=== PATIENT | female | born 1955 | race Caucasian/White ===

== ENCOUNTER 2022-06-27 10:01 | Inpatient (IN) | payer MEDICARE, SELFPAY ==
[2022-06-27] VITALS (11 sets, daily range): BP systolic 145–177; BP diastolic 81–129; PULSE 88–106; RESP 18; TEMP 36.4–36.8; O2SAT 97–100; BMI 35.4
--- NOTE | ~2022-06-27 | CT_ITS ---
EXAMINATION: CT abdomen pelvis wo con DATE: 06/27/2022 12:07 INDICATION: Abdominal pain with vomiting TECHNIQUE: Computed tomography (CT) of the abdomen and pelvis was performed without intravenous contr ast. Automated exposure control and iterative reconstruction technique were employed. The dose-length product was 882.29 mGy-cm. COMPARISON: None FINDINGS: Lung bases are clear. Heart size is normal. No pericardial or pleural effusion. Small sliding-type hi atal hernia. Liver, pancreas, spleen, bilateral adrenal glands and kidneys are normal. Subtle heterog eneous density to the lumen of the otherwise normal appearing gallbladder suspicious for cholelithias is. There is mild colonic diverticulosis with a sigmoid and descending colon predominance. There is n o adjacent inflammatory change to suggest diverticulitis. Small bowel and appendix are normal. Bladd er is normal. The uterus is not identified and has likely been surgically resected. No free intraperi toneal gas or fluid. No pathologically enlarged abdominal or pelvic lymphadenopathy. There are multip le lytic bone lesions in the spine and pelvis. This most notable at T12. There is erosion of a portio n of the inferior endplate and with there is an associated potential pathologic compression fracture with approximately 20% anterior vertebral body height loss. IMPRESSION: 1. Multiple lytic bone lesions in the spine and pelvis suspicious for multiple myeloma with different ial including other metastatic disease. 2. Subtle heterogeneous density in the gallbladder lumen suspicious for cholelithiasis. 3. Diverticulosis. 4. Small sliding-type hiatal hernia. Reviewed, dictated and finalized at location A. REFINISHER IMPRESSION: 1. Multiple lytic bone lesions in the spine and pelvis suspicious for multiple myeloma with differential including other metastatic disease. 2. Subtle heterogeneous density in the gallbladder lumen suspicious for choleli thiasis. 3. Diverticulosis. 4. Small sliding-type hiatal hernia.
--- NOTE | ~2022-06-27 | BM_ITS ---
EXAMINATION: CCL bone marrow asp w bx diag DATE: 07/01/2022 10:35 INDICATION: Multiple myeloma. TECHNIQUE: A time-out was performed to verify the patient's name, date of , and procedure to b e performed. The procedure including the risks, benefits, and alternatives was discussed with the pat ient. Risks discussed included bleeding and infection. The patient understood the risks and agreed to proceed. The skin overlying the left ilium was prepped and draped in usual sterile fashion. Anesth etic was administered with 1% lidocaine subcutaneously. Moderate sedation was achieved with 1 mg Vers ed IV and 50 mg fentanyl IV. An 11 gauge needle was inserted into the ilium with fluoroscopic guidan ce. Bone marrow was aspirated. An 8 gauge needle was then inserted into the ilium with fluoroscopic g uidance. A core bone marrow biopsy was obtained. There were no immediate complications. Fluoroscopy e xposure time was 0.0 minutes. The total number of images was 9. FINDINGS: Real-time fluoroscopy demonstrates a marker overlying the left posterior superior iliac spi ne. IMPRESSION: 1. Fluoro-guided bone marrow aspiration. 2. Fluoro-guided bone marrow core biopsy. Reviewed, dictated and finalized at location A. R MAKING MACHINE OPERATOR
--- NOTE | ~2022-06-27 | XR_ITS ---
EXAMINATION: XR bone survey comp/metastic DATE: 06/28/2022 13:15 INDICATION: Lytic lesions of bone. TECHNIQUE: 29 views of a skeletal survey were obtained. COMPARISON: CT abdomen and pelvis 06/27/2022 FINDINGS: The chest demonstrates clear lungs without pneumonia, pleural effusion, or pneumothorax. Th e heart size is normal. There is a healing fracture of distal left clavicle. There is moderate cervic al spondylosis. There are greater than 40 lytic lesions in the skull. There are 2 lytic lesions in th e right humeral diaphysis. There are lytic lesions in the inferior pubic rami bilaterally. There are lytic lesions in T11-L2 vertebral bodies. There are old surgical changes in right fibula. IMPRESSION: 1. Lytic lesions of bone, consistent with multiple myeloma versus metastatic disease. Reviewed, dictated and finalized at location A. THERMAL CUTTER IMPRESSION: 1. Lytic lesions of bone, consistent with multiple myeloma versus metastatic di nabil.
--- NOTE | ~2022-06-27 | US_ITS ---
EXAMINATION: US renal BI DATE: 06/27/2022 13:00 INDICATION: Acute renal injury TECHNIQUE: Multiple ultrasound grayscale images of the kidneys were obtained. COMPARISON: CT dated 06/27/2022 FINDINGS: The right kidney measures 10.9 x 6.0 x 6.6 cm. The left kidney measures 10.7 x 4.6 x 4.6 cm. The kidn eys demonstrate normal echogenicity. There is no hydronephrosis in either kidney. No renal stones stan ntified. The bladder is normal. Incidentally noted shadowing gallstones in the otherwise normal appea ring nondilated gallbladder. Sonographic Vega sign was reported as negative by the transition coach. IMPRESSION: 1. Normal kidneys without hydronephrosis. 2. Cholelithiasis. Reviewed, dictated and finalized at location A. S AND BLOW MACHINE TENDER
--- NOTE | 2022-06-27 10:33 | ED.NAVMDI ---
HPI - Nausea/Vomiting/Diarrhea General Chief complaint: Nausea/Vomiting/Diarrhea Stated complaint: N/V Time Seen by Provider: 06/27/22 10:28 Source: patient and RN notes reviewed Mode of arrival: ambulatory Limitations: no limitations History of Present Illness HPI Narrative: 67 years old white female brought to the emergency room by her complaining of vomiting for the last 7 days, once in the morning and once at night. With dry heaves retching and nausea. She denies abdominal pain. Patient reports that her symptoms is secondary to nerve. Her had a recent diagnosis of cancer and that is extremely upsetting to her. Also complaining of poor appetite does not eat well or drink well during the daytime. Related Data Allergies Allergy/AdvReac Type Severity Reaction Status Date / Time No Known Allergies Allergy Verified 06/27/22 12:32 Review of Systems Review of Systems: All systems reviewed & are unremarkable except as noted in HPI and below Exam Narrative: General appearance: Well-developed, well-nourished, depressed Skin: Normal color Head: Normocephalic, nontraumatic Eyes: Clear conjunctiva ENT: Oropharynx normal, ears normal, nose normal Neck: Supple, nontender Chest and respiratory: Airway patent, no respiratory distress, no accessory muscle use Heart: Regular rate/rhythm Abdomen: Soft, nontender, no organomegaly, quiet bowel sounds Vascular: Normal peripheral pulses, normal capillary refill. Musculoskeletal: Normal range of motion, nontender back Neurologic: Alert and oriented ?3, DISPATCHER REFINERY is normal as tested, no gross motor deficit Course Consultations Consultation #1: Dr. Marti Date: 06/27/22 Time: 13:36 Vital Signs Vital signs: Vital Signs Temperature 36.4 C 06/27/22 10:24 Pulse Rate 91 06/27/22 10:24 Respiratory Rate 18 06/27/22 10:24 Blood Pressure 158/106 H 06/27/22 10:24 Pulse Oximetry 100 06/27/22 10:24 Oxygen Delivery Room Air 06/27/22 10:24 Temperature 36.4 C 06/27/22 10:24 Pulse Rate 91 06/27/22 10:24 Respiratory Rate 18 06/27/22 10:24 Blood Pressure 158/106 H 06/27/22 10:24 Pulse Oximetry 100 06/27/22 10:24 Oxygen Delivery Room Air 06/27/22 10:24 MDM - Nausea/Vomiting/Diarrhea Differential Diagnosis Differential diagnosis: Likely other (Gastritis, GERD, intra-abdominal malignancy, depression and distressed like symptoms) Lab Data Result diagrams: 06/27/22 10:42 06/27/22 10:42 Labs: Lab Results 06/27/22 06/27/22 06/27/22 Range/Units 10:42 10:42 13:13 WBC 8.0 (4.5-10.0) K/mm3 RBC 3.07 L (4.2-5.4) M/mm3 Hgb 8.9 L (12.0-15.0) g/dL Hct 26.6 L (37.0-47.0) % MCV 86.6 (80-100) fl MCH 29.0 (26-34) pg MCHC 33.5 (32-36) g/dl RDW 12.7 (11.5-14.5) % Plt Count 231 (150-375) k/mm3 MPV 9.1 (7.4-10.4) fl Immature Gran % (Auto) 0.6 H (0-0.5) % Neut % (Auto) 78.9 H (45.5-73.1) % Lymph % (Auto) 11.9 L (18.3-44.2) % Wells % (Auto) 6.8 (2.6-8.5) % Eos % (Auto) 0.9 (0-4.4) % Baso % (Auto) 0.9 (0.2-1.2) % Lymph # (Auto) 0.95 (0.9-3.2) K/mm3 Wells # (Auto) 0.5 (0.1-0.6) K/mm3 Eos # (Auto) 0.1 (0-0.3) K/mm3 Baso # (Auto) 0.1 (0.0-0.1) K/mm3 Abs Immat Gran (auto) 0.05 H (0.00-0.031) K/mm3 Absolute Neuts (auto) 6.3 (1.3-6.7) K/mm3 Absolute Nucleated RBC 0.0 (0.0-0.012) K/mm3 Nucleated RBC % 0.0 (0.0-0.2) % Sodium 138 (137-145) mmol/L Potassium 3.8 (3.4-5.0) mmol/L Chloride 101 (98-107) mmol/L Carbon Dioxide 20 L (22-30) mmol/L Anion Gap 17 H (8-16) mmol/L BUN 82 H (7-17) mg/dL Creatinine 10.90
[2022-06-27 10:50] LABS: Basophils Absolute Auto 0.1 K/mm3 (0.0-0.1); Basophils Percent Auto 0.9 % (0.2-1.2); Eosinophils Absolute Auto 0.1 K/mm3 (0-0.3); Eosinophils Percent Auto 0.9 % (0-4.4); Hematocrit 26.6 % (37.0-47.0); Hemoglobin 8.9 g/dL (12.0-15.0); Immature Granulocyte Absolute 0.05 K/mm3 (0.00-0.031); Immature Granulocyte Percent A 0.6 % (0-0.5); Lymphocytes Absolute Auto 0.95 K/mm3 (0.9-3.2); Lymphocytes Percent Auto 11.9 % (18.3-44.2); Mean Corpuscular HGB Conc 33.5 g/dl (32-36); Mean Corpuscular Volume 86.6 fl (80-100); Mean Platelet Volume 9.1 fl (7.4-10.4); Monocytes Absolute Auto 0.5 K/mm3 (0.1-0.6); Monocytes Percent Auto 6.8 % (2.6-8.5); Neutrophils Absolute Auto 6.3 K/mm3 (1.3-6.7); Neutrophils Percent Auto 78.9 % (45.5-73.1); Platelet Count Result 231 k/mm3 (150-375); Red Blood Count 3.07 M/mm3 (4.2-5.4); Red Cell Distribution Width 12.7 % (11.5-14.5)
[2022-06-27 11:25] LABS: Alanine Aminotransferase 12 U/L (6-35); Albumin Level 4.5 g/dL (3.5-5.1); Alkaline Phosphatase 79 U/L (38-126); Anion Gap 17 mmol/L (8-16); Aspartate Amino Transferase 22 U/L (14-36); Bilirubin,Total 0.8 mg/dL (0.2-1.3); Blood Urea Nitrogen 82 mg/dL (7-17); Carbon Dioxide 20 mmol/L (22-30); Chloride 101 mmol/L (98-107); Estimated Glomerular Filt Rate 4; Glucose 118 mg/dL (65-110); Lipase 220 U/L (23-300); Potassium 3.8 mmol/L (3.4-5.0); Sodium 138 mmol/L (137-145)
[2022-06-27] MEDS: Please add drug allergy info to patient profile. 1 EACH XX (12:34)
[2022-06-27] MEDS: SODIUM CHLORIDE 0.9% IV 2,000 ML 999 ML IV CONT (12:34)
[2022-06-27] MEDS: ONDANSETRON INJ 4 MG/2 ML VIAL IV PUSH (12:34)
[2022-06-27] MEDS: LORazepam INJ (*CRX) 2 MG/ML VIAL 1 MG IV PUSH (12:34)
--- NOTE | 2022-06-27 13:22 | PM.CNNEP ---
Assessment and Plan Assessment and plan (1) LALO (acute kidney injury): Code(s): N17.9 - Acute kidney failure, unspecified Status: Acute Assessment and Plan: concern is this may be secondary to multiple myeloma imaging with lytic bone lesions would support this however, do not want to discount some other pathology check urine electrolytes check urine eosinophils assess for proteinuria check serologies imaging (CT scan and renal ultrasound) without any acute pathology trial of IVFs remains at risk for needing MEDICAL SOCIAL WORKER/dialysis, however: no critical electrolyte abnormalities no evidence of volume overload no severe metabolic acidosis there is a concern of possible uremia, though follow repeat labs and UOP (2) Nausea & vomiting: Code(s): R11.2 - Nausea with vomiting, unspecified Status: Acute Assessment and Plan: presumably due to LALO/ARF +/- uremia trial of IVFs antiemetics supportive care (3) Lytic bone lesions on xray: Code(s): M89.9 - Disorder of bone, unspecified Status: Acute Assessment and Plan: as noted my admission imaging concerning for possible multiple myeloma or metastiatic disease SPEP, UPEP, kappa/lamda ratio, serum/urine immunofixation pending skeletal survey ordered Hem/Onc consulted (4) Anemia: Code(s): D64.9 - Anemia, unspecified Status: Acute Assessment and Plan: likely related to LALO/ARF and possible underlying malignancy follow H/H may need ESAs Long extensive discussion (greater than 20 minutes) with the patient regarding her severe renal dysfunction as noted by her admission labs. I informed her there is a possibility that she may require renal replacement therapy/dialysis during this hospitalization if not in the future depending on the trend of her electrolytes and volume status as well as the fact that she may run into issues/problems with uremia and/or metabolic acidosis. I also discussed with her the possibility that she may need a renal biopsy for definitive diagnosis as to the etiology of her acute kidney injury as well. Will continue to follow History of Present Illness Reason for Consult Consult date: 06/27/22 Reason for consult: acute renal failure Chief Complaint Chief complaint: Vomiting, LALO History of Present Illness Narrative: The patient is a 67-year-old female with a past medical history as outlined below who presented to [facility] Emergency room with complaints of nausea/vomiting. The patient states that the symptoms have been going on for the last 7 days and have progressively gotten worse. Associated symptoms included dry heaves which made her think that the symptoms in general were more related to anxiety/nerves as she has been dealing with the stress of her undergoing cancer treatment and this has been somewhat upsetting to her. Because of the nausea and vomiting, she has had a poor appetite and poor oral intake as well. Because of the persistence of the symptoms, she presented to the emergency room for further assessment Workup and evaluation emergency room demonstrated the patient to be hemodynamically stable but routine blood test demonstrated anemia with a hemoglobin/hematocrit of 8.9/26.6 and a chemistry that demonstrated significant renal dysfunction with a BUN of 82 and a creatinine of 10.9 with no critical electrolyte abnormalities. given her renal dysfunction, a renal ultrasound was done which did not demonstrate any acute pathology or obstruction and subsequently a CT scan of the abdomen pelvis was done which showed multiple lytic bone lesions in the spine and pelvis suspicious for multiple myeloma versus some other metastatic disease. Given these laboratory findings and imaging studies, she was started on IV fluids and subsequently admitted to the hospital for further evaluation and therapy. Renal consultation was requested due to he
[2022-06-27 13:34] LABS: Appearance Urine Clear (Clear); Bilirubin Urine Negative (Negative); Blood Urine 1+ (Negative); Color Urine Yellow (Yellow); Glucose Urine UA Negative (Negative); Ketones Urine Negative (Negative); Leukocyte Esterase Ur 1+ LEU/UL (Negative); Nitrate Urine Negative (Negative); Protein Urine 2+ mg/dL (Negative); Urobilinogen Urine 0.2 mg/dL (<2.0)
--- NOTE | 2022-06-27 13:35 | PM.IMHP ---
H&P: HPI History of Present Illness Date/Time: 06/27/22 13:35 Chief Complaint: Nausea vomiting and diarrhea. Narrative: This is a 67-year-old female patient who came to the emergency room with complaints of vomiting for the last 7 days. The patient vomited once this morning. She has also been having dry heaves. She denies any abdominal pain. The patient thought that she was just having the symptoms due to her nerves. Her is undergoing cancer treatment and has been upsetting to her. The patient has been complaining of poor appetite with poor oral intake. The patient is otherwise healthy and does not take any medications. Her H&H is 8.9 and 26.6. Her BUN is 82 creatinine 10.9. Calcium is 10.0. Her anion gap is 17. CT of the abdomen and pelvis was read as the following. Multiple lytic bone lesions in the spine and pelvis suspicious for multiple myeloma with differential including other metastatic disease. 2. Subtle heterogeneous density in the gallbladder lumen suspicious for cholelithiasis. 3. Diverticulosis. 4. Small sliding-type hiatal hernia. Renal ultrasound was read as normal kidneys without hydronephrosis. Cholelithiasis. Nephrology and Oncology have both been consulted. The patient was given IV fluids, Zofran and Ativan in the emergency room. All of these findings were discussed with the patient the concern for multiple myeloma. I explained to her that she may possibly have a bone marrow biopsy and will be referred to the oncologist. The patient is being admitted to inpatient services on the date of service of 06/27/2022. Review of Systems Review of Systems: See HPI All systems reviewed & are unremarkable except as noted in HPI and below Constitutional: Constitutional: Reports as per HPI and Reports no additional constitutional complaints Eyes: Eyes: Reports as per HPI and Reports no additional eye complaints ENT: Reports system reviewed and no additional complaints, except as documented and Reports Normal hearing present Cardiovascular: Cardiovascular: Reports no additional cardiovascular complaints Respiratory: Respiratory: Reports no additional respiratory complaints and Reports no additional respiratory complaints Gastrointestinal: Gastrointestinal: Reports as per HPI and Reports no additional gastrointestinal complaints Musculoskeletal: Musculoskeletal: Reports no additional musculoskeletal complaints Integumentary/Breasts: Skin/Breast: Reports system reviewed and no additional complaints, except as docu and Reports as per HPI Neurologic: Reports system reviewed and no additional complaints, except as documented, Reports as per HPI and Reports Normal hearing present Psychiatric: Psychiatric: Reports no additional psychiatric complaints and Reports as per HPI Endocrine: Endocrine: Reports no additional endocrine complaints Hematologic/Lymphatic: Hematologic/Lymphatic: Reports no additional hematologic/lymphatic complaints Allergic/Immunologic: Allergic/Immunologic: Reports no additional allergic/immunologic complaints [facility] Past Medical History Medical History (Updated 06/27/22 @ 17:00 by Yolanda Sandhu NP) Anxiety Surgical History Surgical History (Updated 06/27/22 @ 13:47 by Yolanda Sandhu NP) H/O foot surgery right foot H/O: hysterectomy History of removal of pigmented skin lesion Family History Family History (Updated 06/27/22 @ 13:45 by Yolanda Sandhu NP) Mother Diabetes mellitus Hypertension History of kidney cancer Father Lung cancer Anemia Sibling Bladder cancer Sibling Thyroid cancer Social History Social History (Updated 06/27/22 @ 16:57 by Yolanda Sandhu NP) Social History: The patient lives with her who recently started undergoing chemotherapy for cancer. They have 4 children. She is retired from [employer]. She is a lifelong nonsmoker. She does occasionally drink alcohol. She does not use any marijuana or illicit drugs. Power att
[2022-06-27 13:46] LABS: Bacteria Urine Trace /hpf; Mucus Urine Heavy /lpf; RBC Urine 0-2 /hpf (0-2); Squamous Epithelial Cell Urine Rare /hpf (Few)
[2022-06-27] MEDS: SODIUM CHLORIDE 0.9% IV 1,000 ML 999 ML IV CONT (13:52)
[2022-06-27 13:54] LABS: Add Urine Microscopic? YES
--- NOTE | 2022-06-27 15:08 | PC.NURSE ---
This patient, Deandra Winkler, was admitted to Medical Room 343-01. Patient/family oriented to hospital policies and general routines including ID bracelet, bed and alarms, visiting hours, pain management, procedures, bathroom and other care routines, personal items, smoking policy, room service/diet, and visiting hours. Information on how to activate the Rapid Response Team has been discussed. Patient/Family are encouraged to report perceived risks to care and to ask questions if they do not understand what they are told or what they should do.
[2022-06-27] MEDS: SODIUM CHLORIDE 0.9% IV 1,000 ML 250 ML IV CONT (15:28)
[2022-06-27 17:51] LABS: Creatinine Urine 47.5 mg/dL; Total Protein Urine Random 133 mg/dL; Urea Random Urine 230 MG/DL
[2022-06-27 17:55] LABS: Eosinophil Urine Rare % (None Seen); Sodium Urine Random 76 meq/L
[2022-06-27] MEDS: SODIUM CHLORIDE 0.9% IV 1,000 ML 100 ML IV CONT (20:18)
[2022-06-28] VITALS (9 sets, daily range): BP systolic 146–180; BP diastolic 78–98; PULSE 76–88; RESP 16–18; TEMP 36.8–36.9; O2SAT 96–100
[2022-06-28] MEDS: ONDANSETRON INJ 4 MG/2 ML VIAL IV PUSH (01:19)
[2022-06-28 03:19] LABS: Phosphorus 5.9 mg/dL (2.5-4.5)
[2022-06-28 03:27] LABS: Creatine Kinase 31 U/L (30-135)
[2022-06-28] MEDS: SODIUM CHLORIDE 0.9% IV 1,000 ML 100 ML IV CONT (05:10)
[2022-06-28 05:22] LABS: Basophils Absolute Auto 0.1 K/mm3 (0.0-0.1); Basophils Percent Auto 0.8 % (0.2-1.2); Eosinophils Absolute Auto 0.1 K/mm3 (0-0.3); Eosinophils Percent Auto 1.6 % (0-4.4); Immature Granulocyte Absolute 0.04 K/mm3 (0.00-0.031); Immature Granulocyte Percent A 0.6 % (0-0.5); Lymphocytes Absolute Auto 1.31 K/mm3 (0.9-3.2); Lymphocytes Percent Auto 20.4 % (18.3-44.2); Mean Corpuscular HGB Conc 33.3 g/dl (32-36); Mean Corpuscular Volume 87.1 fl (80-100); Mean Platelet Volume 8.8 fl (7.4-10.4); Monocytes Absolute Auto 0.5 K/mm3 (0.1-0.6); Monocytes Percent Auto 7.8 % (2.6-8.5); Neutrophils Absolute Auto 4.4 K/mm3 (1.3-6.7); Neutrophils Percent Auto 68.8 % (45.5-73.1); Platelet Count Result 171 k/mm3 (150-375); Red Blood Count 2.41 M/mm3 (4.2-5.4); Red Cell Distribution Width 12.6 % (11.5-14.5); White Blood Count 6.4 K/mm3 (4.5-10.0)
[2022-06-28 05:38] LABS: Complement C3 192 mg/dL (88-165)
[2022-06-28 05:48] LABS: Alanine Aminotransferase 10 U/L (6-35); Albumin Level 3.4 g/dL (3.5-5.1); Alkaline Phosphatase 52 U/L (38-126); Anion Gap 12 mmol/L (8-16); Aspartate Amino Transferase 12 U/L (14-36); Bilirubin,Total 0.5 mg/dL (0.2-1.3); Blood Urea Nitrogen 64 mg/dL (7-17); Calcium 8.6 mg/dL (8.4-10.2); Carbon Dioxide 17 mmol/L (22-30); Chloride 108 mmol/L (98-107); Estimated CRCL calculation 5 ml/min; Estimated Glomerular Filt Rate 4; Glucose 104 mg/dL (65-110); Magnesium 1.7 mg/dL (1.6-2.3); Potassium 3.8 mmol/L (3.4-5.0); Sodium 137 mmol/L (137-145)
[2022-06-28 06:25] LABS: Hepatitis B Surface Antigen Negative (Negative)
[2022-06-28 06:31] LABS: HAV RESULT Negative (Negative); Hepatitis B Core IgM Result Negative (Negative)
[2022-06-28 06:42] LABS: Hepatitis B Surface Anti Res Negative; Hepatitis C Virus Antibody Negative (Negative)
[2022-06-28] MEDS: SODIUM CHLORIDE 0.9% IV 250 ML 30 ML IV CONT (08:41)
--- NOTE | 2022-06-28 10:51 | P.PNNP_ITS ---
Progress Note: A&P Assessment and Plan (1) LALO (acute kidney injury): Code(s): N17.9 - Acute kidney failure, unspecified Status: Acute Assessment and Plan: * concern is this may be secondary to multiple myeloma * imaging with lytic bone lesions would support this * however, do not want to discount some other pathology * evaluation to date: * imaging (CT scan and renal ultrasound) without any acute pathology * urine electrolytes are non-prerenal * urine eosinophils present ( rare ) * 2800mg of proteinuria * serologies pending * trial of IVFs ongoing * remains at risk for needing COIL MACHINE SUPERVISOR/dialysis, however: * no critical electrolyte abnormalities * no evidence of volume overload * no severe metabolic acidosis * consider renal biopsy for definitive diagnosis of LALO/ARF * follow repeat labs and UOP (2) Nausea & vomiting: Code(s): R11.2 - Nausea with vomiting, unspecified Status: Acute Assessment and Plan: * presumably due to LALO/ARF +/- uremia * trial of IVFs * antiemetics * supportive care (3) Lytic bone lesions on xray: Code(s): M89.9 - Disorder of bone, unspecified Status: Acute Assessment and Plan: * as noted by admission imaging * concerning for possible multiple myeloma or metastatic disease * SPEP, UPEP, kappa/lamda ratio, serum/urine immunofixation pending * skeletal survey ordered * Hem/Onc consulted (4) Anemia: Code(s): D64.9 - Anemia, unspecified Status: Acute Assessment and Plan: * likely related to LALO/ARF and possible underlying malignancy * follow H/H * may need ESAs * check iron studies Will continue to follow. Subjective Date/time seen: 06/28/22 10:51 Renal function remains unchanged despite IVF therapy (although BUN has decreased to some degree); blood pressure has been running a bit high (despite no history of hypertension); nausea/vomiting seems to be doing better; good urine output noted. Exam Narrative: General: WD/WN female in NAD Heart: normal S1 and S2; no rub Lungs: clear to auscultation Abdomen: soft, nontender, nondistended, positive bowel sounds Extremities: no cyanosis or clubbing; no edema Skin: warm and dry Objective Data Vital Signs Vital Signs: Vital Signs Temp Pulse Resp BP Pulse Ox O2 Del Method 06/28/22 10:02 36.8 C 77 16 148/91 H 100 06/28/22 09:02 36.9 C 78 16 163/86 H 100 06/28/22 08:40 Room Air 06/28/22 08:40 36.9 C 76 16 147/87 H 99 06/28/22 06:00 36.9 C 88 18 146/78 H 96 06/27/22 22:00 36.8 C 88 18 153/87 H 97 06/27/22 20:00 Room Air 06/27/22 15:30 Room Air 06/27/22 14:31 36.7 C 106 H 18 163/86 H 100 06/27/22 13:01 157/86 H 06/27/22 12:46 154/81 H 06/27/22 12:09 145/92 H 06/27/22 11:46 154/88 H 06/27/22 11:31 177/129 H 06/27/22 11:01 158/103 H Intake/Output Intake/Output: Intake & Output 06/25/22 06/26/22 06/27/22 06/28/22 23:59 23:59 23:59 23:59 Intake Total 4560 1540 Output Total 300 1800 Balance 4260 -260 Meds/Results Medications: Active Medications
--- NOTE | 2022-06-28 10:51 | PM.PNNEP ---
Progress Note: A&P Assessment and Plan (1) LALO (acute kidney injury): Code(s): N17.9 - Acute kidney failure, unspecified Status: Acute Assessment and Plan: concern is this may be secondary to multiple myeloma imaging with lytic bone lesions would support this however, do not want to discount some other pathology evaluation to date: imaging (CT scan and renal ultrasound) without any acute pathology urine electrolytes are non-prerenal urine eosinophils present ( rare ) 2800mg of proteinuria serologies pending trial of IVFs ongoing remains at risk for needing MIDDLE SCHOOL GUIDANCE COUNSELOR/dialysis, however: no critical electrolyte abnormalities no evidence of volume overload no severe metabolic acidosis consider renal biopsy for definitive diagnosis of LALO/ARF follow repeat labs and UOP (2) Nausea & vomiting: Code(s): R11.2 - Nausea with vomiting, unspecified Status: Acute Assessment and Plan: presumably due to LALO/ARF +/- uremia trial of IVFs antiemetics supportive care (3) Lytic bone lesions on xray: Code(s): M89.9 - Disorder of bone, unspecified Status: Acute Assessment and Plan: as noted by admission imaging concerning for possible multiple myeloma or metastatic disease SPEP, UPEP, kappa/lamda ratio, serum/urine immunofixation pending skeletal survey ordered Hem/Onc consulted (4) Anemia: Code(s): D64.9 - Anemia, unspecified Status: Acute Assessment and Plan: likely related to LALO/ARF and possible underlying malignancy follow H/H may need ESAs check iron studies Will continue to follow. Subjective Date/time seen: 06/28/22 10:51 Renal function remains unchanged despite IVF therapy (although BUN has decreased to some degree); blood pressure has been running a bit high (despite no history of hypertension); nausea/vomiting seems to be doing better; good urine output noted. Exam Narrative: General: WD/WN female in NAD Heart: normal S1 and S2; no rub Lungs: clear to auscultation Abdomen: soft, nontender, nondistended, positive bowel sounds Extremities: no cyanosis or clubbing; no edema Skin: warm and dry Objective Data Vital Signs Vital Signs: Vital Signs Temp Pulse Resp BP Pulse Ox O2 Del Method 06/28/22 10:02 36.8 C 77 16 148/91 H 100 06/28/22 09:02 36.9 C 78 16 163/86 H 100 06/28/22 08:40 Room Air 06/28/22 08:40 36.9 C 76 16 147/87 H 99 06/28/22 06:00 36.9 C 88 18 146/78 H 96 06/27/22 22:00 36.8 C 88 18 153/87 H 97 06/27/22 20:00 Room Air 06/27/22 15:30 Room Air 06/27/22 14:31 36.7 C 106 H 18 163/86 H 100 06/27/22 13:01 157/86 H 06/27/22 12:46 154/81 H 06/27/22 12:09 145/92 H 06/27/22 11:46 154/88 H 06/27/22 11:31 177/129 H 06/27/22 11:01 158/103 H Intake/Output Intake/Output: Intake & Output 06/25/22 06/26/22 06/27/22 06/28/22 23:59 23:59 23:59 23:59 Intake Total 4560 1540 Output Total 300 1800 Balance 4260 -260 Meds/Results Medications: Active Medications Generic Name Dose Route Start Last Admin Trade Name Freq PRN Reason Stop Dose Admin Acetaminophen 1,000 mg in 100 mls @ 400 mls/hr 06/27/22 12:11 06/28/22 01:35 Ofirmev 1,000 Mg Ivpb IVPB 06/28/22 12:10 Infused Q6H PRN Infusion Mild Pain (1-3) or Fever Sodium Chloride 1,000 mls @ 100 mls/hr 06/27/22 12:15 06/28/22 05:10 Normal Saline Iv IV CONT 100 mls/hr .Q10H RYAN Administration Sodium Chloride 250 mls @ 30 mls/hr 06/28/22 05:38 06/28/22 08:41 Normal Saline Iv IV CONT 06/28/22 13:57 30 mls/hr .Q8H20M STA Administration Lorazepam 0.5 mg 06/27/22 17:07 Lorazepam Inj (*Crx) 2 Mg/Ml Vial IV PUSH Q6H PRN Anxiety Ondansetron HCl 4 mg 06/27/22 12:11 06/28/22 01:19 Ondansetron Inj 4 Mg/2 Ml Vial IV PUSH 4 mg Q4H PRN Administration Nausea
--- NOTE | 2022-06-28 14:25 | PM.IMPN ---
Progress Note: A&P Assessment and Plan (1) Anemia: Code(s): D64.9 - Anemia, unspecified Status: Acute Assessment and Plan: -could be related to her renal failure. Multiple test suggested patient has multiple myeloma. She has the lytic lesions, anemia, normal limits of calcium, and renal failure. -oncology has been consulted. -. Patient's H&H is 8.9 and 26.6. MCV is within normal limits. No recent values to compare this with. Hemoglobin down to 7 and getting 1 unit of packed red blood cell transfusion today (2) LALO (acute kidney injury): Code(s): N17.9 - Acute kidney failure, unspecified Status: Acute Assessment and Plan: -continue with IV fluids. -nephrology has been consulted. -may be multiple myeloma. -renal ultrasound was read as following 1. Normal kidneys without hydronephrosis. 2. Cholelithiasis. -BUN 82 creatinine 10.90 estimated GFR is 4. (3) Bone metastases: Code(s): C79.51 - Secondary malignant neoplasm of bone Status: Acute Assessment and Plan: -the patient has lytic lesions that resemble multiple myeloma. (4) Anxiety: Code(s): F41.9 - Anxiety disorder, unspecified Status: Acute Assessment and Plan: P.maricarmen Bermeo. Subjective Date/time seen: 06/28/22 14:25 Interval history: This is a 67-year-old female patient who came to the emergency room with complaints of vomiting for the last 7 days.? The patient vomited once this morning.? She has also been having dry heaves.? She denies any abdominal pain.? The patient thought that she was just having the symptoms due to her nerves.? Her is undergoing cancer treatment and has been upsetting to her.? The patient has been complaining of poor appetite with poor oral intake.? The patient is otherwise healthy and does not take any medications.? Her H&H is 8.9 and 26.6.? Her BUN is 82 creatinine 10.9.? Calcium is 10.0.? Her anion gap is 17.? CT of the abdomen and pelvis was read as the following. Multiple lytic bone lesions in the spine and pelvis suspicious for multiple myeloma with differential including other metastatic disease. 2. Subtle heterogeneous density in the gallbladder lumen suspicious for cholelithiasis. 3. Diverticulosis. 4. Small sliding-type hiatal hernia. Renal ultrasound was read as normal kidneys without hydronephrosis.? Cholelithiasis. Nephrology and Oncology have both been consulted. The patient was given IV fluids, Zofran and Ativan in the emergency room. All of these findings were discussed with the patient the concern for multiple myeloma.? I explained to her that she may possibly have a bone marrow biopsy and will be referred to the oncologist.? The patient is being admitted to inpatient services on the date of service of 06/27/2022. 06/28/2022: No overnight events. Feels okay. Denies any chest pain or shortness of breath. Review of Systems Review of Systems: All systems reviewed & are unremarkable except as noted in HPI and below Exam Narrative: General appearance: Well-developed, well-nourished, depressed Skin: Normal color Head: Normocephalic, nontraumatic Eyes: Clear conjunctiva ENT: Oropharynx normal, ears normal, nose normal Neck: Supple, nontender Chest and respiratory: Airway patent, no respiratory distress, no accessory muscle use Heart: Regular rate/rhythm Abdomen: Soft, nontender, no organomegaly, quiet bowel sounds Vascular: Normal peripheral pulses, normal capillary refill. Musculoskeletal: Normal range of motion, nontender back Neurologic: Alert and oriented ?3, OUTPATIENT PROGRAM COORDINATOR is normal as tested, no gross motor deficit Objective Data Vital Signs Vital Signs: Vital Signs - 24 hr 06/27/22 14:31 06/27/22 15:30 06/27/22 20:00 Temperature 98.1 F Pulse Rate 106 H Respiratory Rate 18 Blood Pressure 163/86 H Pulse Oximetry 100 Oxygen Delivery Room Air Room Air 06/27/22 22:00 06/28/22 06:00 06/28/22 08:40 Temperature 98.2 F 98.4 F 98.5 F
[2022-06-28] MEDS: SODIUM CHLORIDE 0.9% IV 1,000 ML 50 ML IV CONT (23:30)
[2022-06-29] MEDS: ONDANSETRON INJ 4 MG/2 ML VIAL IV PUSH ×2 (00:22→04:33)
[2022-06-29 04:26] VITALS: BP 163/92; PULSE 99; RESP 16; TEMP 37.1; O2SAT 97
[2022-06-29 05:37] LABS: Basophils Absolute Auto 0.1 K/mm3 (0.0-0.1); Basophils Percent Auto 0.9 % (0.2-1.2); Eosinophils Absolute Auto 0.1 K/mm3 (0-0.3); Eosinophils Percent Auto 1.7 % (0-4.4); Hematocrit 23.9 % (37.0-47.0); Immature Granulocyte Absolute 0.06 K/mm3 (0.00-0.031); Immature Granulocyte Percent A 0.9 % (0-0.5); Lymphocytes Absolute Auto 1.39 K/mm3 (0.9-3.2); Lymphocytes Percent Auto 20.1 % (18.3-44.2); Mean Corpuscular HGB Conc 33.5 g/dl (32-36); Mean Corpuscular Hemoglobin 28.8 pg (26-34); Mean Platelet Volume 8.6 fl (7.4-10.4); Monocytes Absolute Auto 0.6 K/mm3 (0.1-0.6); Neutrophils Absolute Auto 4.7 K/mm3 (1.3-6.7); Neutrophils Percent Auto 68.4 % (45.5-73.1); Platelet Count Result 161 k/mm3 (150-375); Red Blood Count 2.78 M/mm3 (4.2-5.4); Red Cell Distribution Width 12.8 % (11.5-14.5); White Blood Count 6.9 K/mm3 (4.5-10.0)
[2022-06-29 05:48] LABS: Alanine Aminotransferase 10 U/L (6-35); Albumin Level 3.5 g/dL (3.5-5.1); Alkaline Phosphatase 60 U/L (38-126); Anion Gap 10 mmol/L (8-16); Aspartate Amino Transferase 14 U/L (14-36); Bilirubin,Total 0.5 mg/dL (0.2-1.3); Blood Urea Nitrogen 60 mg/dL (7-17); Calcium 8.7 mg/dL (8.4-10.2); Carbon Dioxide 18 mmol/L (22-30); Chloride 111 mmol/L (98-107); Estimated CRCL calculation 5 ml/min; Estimated Glomerular Filt Rate 4; Glucose 99 mg/dL (65-110); Magnesium 1.5 mg/dL (1.6-2.3); Phosphorus 4.7 mg/dL (2.5-4.5); Potassium 3.7 mmol/L (3.4-5.0); Sodium 139 mmol/L (137-145)
[2022-06-29 05:58] LABS: Iron 48 ug/dL (37-170)
[2022-06-29 06:09] LABS: Percent Iron Saturation 23 % (20-50)
[2022-06-29 06:51] LABS: Folic Acid 5.1 ng/mL (2.76->20)
[2022-06-29 10:20] VITALS: O2SAT 98
--- NOTE | 2022-06-29 13:03 | P.PNNP_ITS ---
Progress Note: A&P Assessment and Plan (1) LALO (acute kidney injury): Code(s): N17.9 - Acute kidney failure, unspecified Status: Acute Assessment and Plan: * normal renal function as of May 2021 * concern is this may be secondary to multiple myeloma * imaging with lytic bone lesions would support this * however, do not want to discount some other pathology * evaluation to date: * imaging (CT scan and renal ultrasound) without any acute pathology * urine electrolytes are non-prerenal * urine eosinophils present ( rare ) * 2800mg of proteinuria * serologies pending * trial of IVFs ongoing * remains at risk for needing RE ETCHER/dialysis, however: * no critical electrolyte abnormalities * no evidence of volume overload * no severe metabolic acidosis * consider renal biopsy for definitive diagnosis of LALO/ARF * follow repeat labs and UOP (2) Nausea & vomiting: Code(s): R11.2 - Nausea with vomiting, unspecified Status: Acute Assessment and Plan: * presumably due to LALO/ARF +/- uremia * trial of IVFs * antiemetics * supportive care (3) Lytic bone lesions on xray: Code(s): M89.9 - Disorder of bone, unspecified Status: Acute Assessment and Plan: * as noted by admission imaging * concerning for possible multiple myeloma or metastatic disease * SPEP, UPEP, kappa/lamda ratio, serum/urine immunofixation pending * skeletal survey results noted * Hem/Onc consulted (4) Anemia: Code(s): D64.9 - Anemia, unspecified Status: Acute Assessment and Plan: * likely related to LALO/ARF and possible underlying malignancy * follow H/H * PRBC transfusion per protoco; * may need ESAs * anemia studies with adequate iron stores Long and extensive discussion (> 20 minutes) with patient and her /family at bedside regarding her LALO/ARF; despite her labs, she has stable electrolytes, no evidence of volume overload, and no uremia so no need for urgent dialysis at this time; serologies studies are pending but discussed the possibility of doing a renal biopsy for a definitive diagnosis of her LALO/ARF ( high index of suspicion for myeloma kidney); she will think about this but is waiting to discuss things with Hem/Onc first. Will continue to follow. Subjective Date/time seen: 06/29/22 13:03 No apparent distress voiced; renal function remains unchanged with current intervention; continues to make reasonable urine output and has no critical electrolytes; nausea/vomiting seems to be controlled with IV anti-emetics; tolerated PRBC transfusion yesterday; family at bedside and we discussed the situation. Exam Narrative: General: WD/WN female in NAD Heart: normal S1 and S2; no rub Lungs: clear to auscultation Abdomen: soft, nontender, nondistended, positive bowel sounds Extremities: no cyanosis or clubbing; no edema Skin: warm and intact Objective Data Vital Signs Vital Signs: Vital Signs Temp Pulse Resp BP Pulse Ox O2 Del Method 06/29/22 10:20 98 Room Air 06/29/22 08:00 Room Air 06/29/22 04:26 37.1 C 99 16 163/92 H 97 06/28/22 20:00 78 18 100 Room Air 06/28/22 20:28 36.9 C 78 18 161/89 H 100 Intake/Output Intake/Output: Intake & Output 06/26/22 06/27/22 06/28/22 06/29/22 23:59 2
--- NOTE | 2022-06-29 13:03 | PM.PNNEP ---
Progress Note: A&P Assessment and Plan (1) LALO (acute kidney injury): Code(s): N17.9 - Acute kidney failure, unspecified Status: Acute Assessment and Plan: normal renal function as of May 2021 concern is this may be secondary to multiple myeloma imaging with lytic bone lesions would support this however, do not want to discount some other pathology evaluation to date: imaging (CT scan and renal ultrasound) without any acute pathology urine electrolytes are non-prerenal urine eosinophils present ( rare ) 2800mg of proteinuria serologies pending trial of IVFs ongoing remains at risk for needing MUSICAL PERFORMER/dialysis, however: no critical electrolyte abnormalities no evidence of volume overload no severe metabolic acidosis consider renal biopsy for definitive diagnosis of LALO/ARF follow repeat labs and UOP (2) Nausea & vomiting: Code(s): R11.2 - Nausea with vomiting, unspecified Status: Acute Assessment and Plan: presumably due to LALO/ARF +/- uremia trial of IVFs antiemetics supportive care (3) Lytic bone lesions on xray: Code(s): M89.9 - Disorder of bone, unspecified Status: Acute Assessment and Plan: as noted by admission imaging concerning for possible multiple myeloma or metastatic disease SPEP, UPEP, kappa/lamda ratio, serum/urine immunofixation pending skeletal survey results noted Hem/Onc consulted (4) Anemia: Code(s): D64.9 - Anemia, unspecified Status: Acute Assessment and Plan: likely related to LALO/ARF and possible underlying malignancy follow H/H PRBC transfusion per protoco; may need ESAs anemia studies with adequate iron stores Long and extensive discussion (> 20 minutes) with patient and her /family at bedside regarding her LALO/ARF; despite her labs, she has stable electrolytes, no evidence of volume overload, and no uremia so no need for urgent dialysis at this time; serologies studies are pending but discussed the possibility of doing a renal biopsy for a definitive diagnosis of her LALO/ARF ( high index of suspicion for myeloma kidney); she will think about this but is waiting to discuss things with Hem/Onc first. Will continue to follow. Subjective Date/time seen: 06/29/22 13:03 No apparent distress voiced; renal function remains unchanged with current intervention; continues to make reasonable urine output and has no critical electrolytes; nausea/vomiting seems to be controlled with IV anti-emetics; tolerated PRBC transfusion yesterday; family at bedside and we discussed the situation. Exam Narrative: General: WD/WN female in NAD Heart: normal S1 and S2; no rub Lungs: clear to auscultation Abdomen: soft, nontender, nondistended, positive bowel sounds Extremities: no cyanosis or clubbing; no edema Skin: warm and intact Objective Data Vital Signs Vital Signs: Vital Signs Temp Pulse Resp BP Pulse Ox O2 Del Method 06/29/22 10:20 98 Room Air 06/29/22 08:00 Room Air 06/29/22 04:26 37.1 C 99 16 163/92 H 97 06/28/22 20:00 78 18 100 Room Air 06/28/22 20:28 36.9 C 78 18 161/89 H 100 Intake/Output Intake/Output: Intake & Output 06/26/22 06/27/22 06/28/22 06/29/22 23:59 23:59 23:59 23:59 Intake Total 4560 4720 1928 Output Total 300 2850 2750 Balance 4260 1870 -822 Meds/Results Medications: Active Medications Generic Name Dose Route Start Last Admin Trade Name Freq PRN Reason Stop Dose Admin Acetaminophen 650 mg 06/29/22 14:39 06/29/22 14:46 Acetaminophen 325 Mg Tablet PO 650 mg Q6H PRN Administration Mild Pain (1-3) or Fever Sodium Chloride 1,000 mls @ 50 mls/hr 06/27/22 12:15 06/28/22 23:30 Normal Saline Iv IV CONT 50 mls/hr .Q20H RYAN Administration Lorazepam 0.5 mg 06/27/22 17:07 Lorazepam Inj (*Crx) 2 Mg/Ml Vial IV PUSH Q6H PRN Anxiety Ondansetron H
[2022-06-29 13:22] VITALS: BMI 35.4
[2022-06-29 14:00] VITALS: BP 152/88; PULSE 79; RESP 18; TEMP 36.6; O2SAT 99
[2022-06-29] MEDS: ACETAMINOPHEN 325 MG TABLET 650 MG PO (14:46)
--- NOTE | 2022-06-29 18:05 | PM.IMPN ---
Progress Note: A&P Assessment and Plan (1) Anemia: Code(s): D64.9 - Anemia, unspecified Status: Acute Assessment and Plan: -could be related to her renal failure. Multiple test suggested patient has multiple myeloma. She has the lytic lesions, anemia, normal limits of calcium, and renal failure. -oncology has been consulted. -. Patient's H&H is 8.9 and 26.6. MCV is within normal limits. No recent values to compare this with. Hemoglobin down to 7 and getting 1 unit of packed red blood cell transfusion With appropriate rise. Continue to monitor H&H no active signs of bleeding (2) LALO (acute kidney injury): Code(s): N17.9 - Acute kidney failure, unspecified Status: Acute Assessment and Plan: -continue with IV fluids. -nephrology has been consulted. -may be multiple myeloma. -renal ultrasound was read as following 1. Normal kidneys without hydronephrosis. 2. Cholelithiasis. -BUN 82 creatinine 10.90 estimated GFR is 4. (3) Bone metastases: Code(s): C79.51 - Secondary malignant neoplasm of bone Status: Acute Assessment and Plan: -the patient has lytic lesions that resemble multiple myeloma versus metastatic disease. Discussed with Oncology she might need bone marrow biopsy. Will need to wait for electrophoresis test. (4) Anxiety: Code(s): F41.9 - Anxiety disorder, unspecified Status: Acute Assessment and Plan: Pablo Bermeo. Subjective Date/time seen: 06/29/22 18:05 Interval history: This is a 67-year-old female patient who came to the emergency room with complaints of vomiting for the last 7 days.? The patient vomited once this morning.? She has also been having dry heaves.? She denies any abdominal pain.? The patient thought that she was just having the symptoms due to her nerves.? Her is undergoing cancer treatment and has been upsetting to her.? The patient has been complaining of poor appetite with poor oral intake.? The patient is otherwise healthy and does not take any medications.? Her H&H is 8.9 and 26.6.? Her BUN is 82 creatinine 10.9.? Calcium is 10.0.? Her anion gap is 17.? CT of the abdomen and pelvis was read as the following. Multiple lytic bone lesions in the spine and pelvis suspicious for multiple myeloma with differential including other metastatic disease. 2. Subtle heterogeneous density in the gallbladder lumen suspicious for cholelithiasis. 3. Diverticulosis. 4. Small sliding-type hiatal hernia. Renal ultrasound was read as normal kidneys without hydronephrosis.? Cholelithiasis. Nephrology and Oncology have both been consulted. The patient was given IV fluids, Zofran and Ativan in the emergency room. All of these findings were discussed with the patient the concern for multiple myeloma.? I explained to her that she may possibly have a bone marrow biopsy and will be referred to the oncologist.? The patient is being admitted to inpatient services on the date of service of 06/27/2022. 06/28/2022: No overnight events. Feels okay. Denies any chest pain or shortness of breath. 06/29/2022: She had an episode of nausea and vomiting last night. She feels well today. Wonders if she could go home. Denies any chest pain shortness a breath or leg swelling. Review of Systems Review of Systems: All systems reviewed & are unremarkable except as noted in HPI and below Exam Narrative: General appearance: Well-developed, well-nourished, depressed Skin: Normal color Head: Normocephalic, nontraumatic Eyes: Clear conjunctiva ENT: Oropharynx normal, ears normal, nose normal Neck: Supple, nontender Chest and respiratory: Airway patent, no respiratory distress, no accessory muscle use Heart: Regular rate/rhythm Abdomen: Soft, nontender, no organomegaly, quiet bowel sounds Vascular: Normal peripheral pulses, normal capillary refill. Musculoskeletal: Normal range of motion, nontender back Neurologic: Alert and oriented ?3, MANAGER LATIN is normal a
--- NOTE | 2022-06-29 18:33 | PDONCCN ---
HPI - Date of Consult Date/Time: 06/29/22 18:33 Requesting Physician: Ezequiel Bernard MD Primary Care Provider: PHYSICIAN NOT ON STAFF - Consult Narrative Reason for consult: Likely multiple myeloma Narrative: Deandra Winkler is a 67 year old female who has been in good health visiting from [place] with her new was recently diagnosed with tongue cancer and completed course of radiation therapy and chemotherapy treatment. She came into the ER with complain of nausea vomiting for last 1 week duration. She denies any bone pain. She denies any neuropathy. She has lost over 10 lb weight which she contributes to the recent stress with her going through chemotherapy and radiation therapy treatment. Patient had CT scan of abdomen and pelvis done that showed multiple lytic bone lesions in the spine and the pelvis concerning for multiple myeloma or metastatic disease. Labs also showed significant anemia with hemoglobin of 7.0. Patient's serum creatinine was 10.9. BUN was also elevated. Calcium was 10.0. She denies any previous history of kidney disease. Review of Systems - Review of Systems All systems reviewed & are unremarkable except as noted in HPI and bel - Neurologic Reports system reviewed and no additional complaints, except as documented, Reports hearing normal [facility] Medical History: Medical History (Last Updated 06/27/22 @ 16:56 by Yolanda Sandhu NP) Anxiety Surgical History: Surgical History (Last Updated 06/27/22 @ 13:47 by Yolanda Sandhu NP) H/O foot surgery right foot H/O: hysterectomy History of removal of pigmented skin lesion Family History: Family History (Last Updated 06/27/22 @ 13:45 by Yolanda Sandhu NP) Mother Diabetes mellitus Hypertension History of kidney cancer Father Lung cancer Anemia Sibling Bladder cancer Sibling Thyroid cancer - Social History Social History: Social History (Last Updated 06/27/22 @ 16:57 by Yolanda Sandhu NP) Alcohol Use: Alcohol intake: former Drinks per week: 7 Substance Use: Substance use: never Substance use type: does not use Others: Spiritual care concerns: No Smoking Status: Smoking status: Never smoker Second hand tobacco smoke exposure: No Social Determinants of Health: Has the Lack of Transportation Kept You From Medical Appointments or From Getting Medications?: No Within the Past 12 Months, Were You Worried Whether Your Food Would Run Out Before You Got Money to Buy More?: Never True What is Your Housing Situation Today?: I Have Housing Are You Worried That in the Next 2 Months, You May Not Have Your Own Housing to Live In?: No Do You Have Trouble Paying Your Heating Or Electricity Bill?: No Do You Have Trouble Paying For Medicines?: No Are You Currently Unemployed and Looking for Work?: No Highest Level of Education Completed: High School Diploma/GED Do You Have Trouble With Childcare or the Care of a Family Member?: No Exam - Vital Signs Vital Signs - 24 hr 06/28/22 20:28 06/28/22 20:00 06/29/22 04:26 Temperature 36.9 C 37.1 C Pulse Rate 78 78 99 Respiratory Rate 18 18 16 Blood Pressure 161/89 H 163/92 H Pulse Oximetry 100 100 97 Oxygen Delivery Room Air 06/29/22 08:00 06/29/22 10:20 06/29/22 14:00 Temperature 36.6 C Pulse Rate 79 Respiratory Rate 18 Blood Pressure 152/88 H Pulse Oximetry 98 99 Oxygen Delivery Room Air Room Air - Exam HEENT: EOMI, PERRLA, mucous membranes moist and pink, sclera clear Neck: supple. No: JVD Lungs: clear to auscultation, normal air movement Heart: no murmurs, gallops, or rubs, regular rhythm, regular rate Abdomen: abdomen soft, non-distended, normal bowel sounds Extremities: normal pulses Integumentary: no abnormalities Neurological: normal speech Psychological: mental status NL, mood NL - Lab Results Laboratory Last Values WBC 6.9 K
[2022-06-29 19:23] LABS: Immunoglobulin A 228 mg/dL (70-400); Immunoglobulin G 431 mg/dL (700-1600); Immunoglobulin M 31 mg/dL (40-230)
[2022-06-29 19:46] VITALS: BP 154/92; PULSE 70; RESP 18; TEMP 36.8; O2SAT 99
[2022-06-29 20:00] VITALS: PULSE 70; RESP 18; O2SAT 99
[2022-06-29] MEDS: SODIUM CHLORIDE 0.9% IV 1,000 ML 50 ML IV CONT (20:29)
[2022-06-30] MEDS: ONDANSETRON INJ 4 MG/2 ML VIAL IV PUSH (00:51)
[2022-06-30 04:35] VITALS: BP 153/79; PULSE 90; RESP 16; TEMP 36.8; O2SAT 97
[2022-06-30 05:49] LABS: Alanine Aminotransferase 10 U/L (6-35); Albumin Level 3.5 g/dL (3.5-5.1); Alkaline Phosphatase 66 U/L (38-126); Anion Gap 11 mmol/L (8-16); Aspartate Amino Transferase 14 U/L (14-36); Bilirubin,Total 0.5 mg/dL (0.2-1.3); Blood Urea Nitrogen 60 mg/dL (7-17); Calcium 8.7 mg/dL (8.4-10.2); Carbon Dioxide 18 mmol/L (22-30); Chloride 110 mmol/L (98-107); Estimated CRCL calculation 5 ml/min; Estimated Glomerular Filt Rate 4; Glucose 102 mg/dL (65-110); Magnesium 1.5 mg/dL (1.6-2.3); Phosphorus 5.2 mg/dL (2.5-4.5); Potassium 3.9 mmol/L (3.4-5.0); Sodium 139 mmol/L (137-145)
[2022-06-30 05:50] LABS: Basophils Absolute Auto 0.1 K/mm3 (0.0-0.1); Basophils Percent Auto 0.9 % (0.2-1.2); Eosinophils Absolute Auto 0.1 K/mm3 (0-0.3); Hemoglobin 8.2 g/dL (12.0-15.0); Immature Granulocyte Absolute 0.06 K/mm3 (0.00-0.031); Immature Granulocyte Percent A 0.9 % (0-0.5); Lymphocytes Absolute Auto 1.25 K/mm3 (0.9-3.2); Lymphocytes Percent Auto 18.2 % (18.3-44.2); Mean Corpuscular HGB Conc 32.8 g/dl (32-36); Mean Corpuscular Hemoglobin 29.2 pg (26-34); Mean Platelet Volume 9.1 fl (7.4-10.4); Monocytes Absolute Auto 0.5 K/mm3 (0.1-0.6); Monocytes Percent Auto 7.4 % (2.6-8.5); Neutrophils Absolute Auto 4.8 K/mm3 (1.3-6.7); Neutrophils Percent Auto 70.6 % (45.5-73.1); Platelet Count Result 164 k/mm3 (150-375); Red Blood Count 2.81 M/mm3 (4.2-5.4); Red Cell Distribution Width 13.1 % (11.5-14.5); White Blood Count 6.9 K/mm3 (4.5-10.0)
[2022-06-30] MEDS: CYANOCOBALAMIN 1,000 MCG TABLET 1000 MCG PO (09:07)
--- NOTE | 2022-06-30 11:36 | P.PNNP_ITS ---
Progress Note: A&P Assessment and Plan (1) LALO (acute kidney injury): Code(s): N17.9 - Acute kidney failure, unspecified Status: Acute Assessment and Plan: * normal renal function as of May 2021 * concern is this may be secondary to multiple myeloma * imaging with lytic bone lesions would support this * however, do not want to discount some other pathology * evaluation to date: * imaging (CT scan and renal ultrasound) without any acute pathology * urine electrolytes are non-prerenal * urine eosinophils present ( rare ) * 2800mg of proteinuria * serologies pending * remains at risk for needing INSTRUMENT TECHNICIAN/dialysis, however: * no critical electrolyte abnormalities * no evidence of volume overload * no severe metabolic acidosis * consider renal biopsy for definitive diagnosis of LALO/ARF * follow repeat labs and UOP (2) Nausea & vomiting: Code(s): R11.2 - Nausea with vomiting, unspecified Status: Acute Assessment and Plan: * presumably due to LALO/ARF +/- uremia * IV antiemetics * supportive care (3) Lytic bone lesions on xray: Code(s): M89.9 - Disorder of bone, unspecified Status: Acute Assessment and Plan: * as noted by admission imaging * concerning for possible multiple myeloma or metastatic disease * SPEP, UPEP, kappa/lamda ratio, serum/urine immunofixation pending * skeletal survey results noted * Hem/Onc recommendations noted (4) Anemia: Code(s): D64.9 - Anemia, unspecified Status: Acute Assessment and Plan: * likely related to LALO/ARF and possible underlying malignancy * follow H/H * PRBC transfusion per protocol; * may need ESAs * anemia studies with adequate iron stores Will continue to follow. Subjective Date/time seen: 06/30/22 11:36 Overall, seems to be doing reasonably well; still have some on/off issues with nausea and dry heaves but does respond to IV antiemetics; saw Oncology yesterday; willing to move forward with bone marrow biopsy at this time. Exam Narrative: General: WD/WN female in NAD Heart: normal S1 and S2; no rub Lungs: clear to auscultation Abdomen: soft, nontender, nondistended, positive bowel sounds Extremities: no cyanosis or clubbing; no edema Skin: no nodules Objective Data Vital Signs Vital Signs: Vital Signs Temp Pulse Resp BP Pulse Ox O2 Del Method 11/22/22 09:30 Room Air 06/30/22 04:35 98.2 F 90 16 153/79 H 97 06/29/22 20:00 70 18 99 Room Air 06/29/22 19:46 98.3 F 70 18 154/92 H 99 06/29/22 14:00 97.8 F 79 18 152/88 H 99 Intake/Output Intake/Output: Intake & Output 06/27/22 06/28/22 06/29/22 06/30/22 23:59 23:59 23:59 23:59 Intake Total 4560 4720 3318 590 Output Total 300 2850 2750 1050 Balance 4260 1870 568 -460 Meds/Results Medications: Active Medications Generic Name Dose Route Start Last Admin Trade Name Freq PRN Reason Stop Dose Admin Acetaminophen 650 mg 06/29/22 14:39 06/29/22 14:46 Acetaminophen 325 Mg Tablet PO 650 mg Q6H PRN Administration Mild Pain (1-3) or Fever Cyanocobalamin 1,000 mcg 06/30/22 09:00 06/30/22 09:07 Cyanocoba
--- NOTE | 2022-06-30 11:36 | PM.PNNEP ---
Progress Note: A&P Assessment and Plan (1) LALO (acute kidney injury): Code(s): N17.9 - Acute kidney failure, unspecified Status: Acute Assessment and Plan: normal renal function as of May 2021 concern is this may be secondary to multiple myeloma imaging with lytic bone lesions would support this however, do not want to discount some other pathology evaluation to date: imaging (CT scan and renal ultrasound) without any acute pathology urine electrolytes are non-prerenal urine eosinophils present ( rare ) 2800mg of proteinuria serologies pending remains at risk for needing CLERK SPECIALIST/dialysis, however: no critical electrolyte abnormalities no evidence of volume overload no severe metabolic acidosis consider renal biopsy for definitive diagnosis of LALO/ARF follow repeat labs and UOP (2) Nausea & vomiting: Code(s): R11.2 - Nausea with vomiting, unspecified Status: Acute Assessment and Plan: presumably due to LALO/ARF +/- uremia IV antiemetics supportive care (3) Lytic bone lesions on xray: Code(s): M89.9 - Disorder of bone, unspecified Status: Acute Assessment and Plan: as noted by admission imaging concerning for possible multiple myeloma or metastatic disease SPEP, UPEP, kappa/lamda ratio, serum/urine immunofixation pending skeletal survey results noted Hem/Onc recommendations noted (4) Anemia: Code(s): D64.9 - Anemia, unspecified Status: Acute Assessment and Plan: likely related to LALO/ARF and possible underlying malignancy follow H/H PRBC transfusion per protocol; may need ESAs anemia studies with adequate iron stores Will continue to follow. Subjective Date/time seen: 06/30/22 11:36 Overall, seems to be doing reasonably well; still have some on/off issues with nausea and dry heaves but does respond to IV antiemetics; saw Oncology yesterday; willing to move forward with bone marrow biopsy at this time. Exam Narrative: General: WD/WN female in NAD Heart: normal S1 and S2; no rub Lungs: clear to auscultation Abdomen: soft, nontender, nondistended, positive bowel sounds Extremities: no cyanosis or clubbing; no edema Skin: no nodules Objective Data Vital Signs Vital Signs: Vital Signs Temp Pulse Resp BP Pulse Ox O2 Del Method 06/30/22 09:30 Room Air 06/30/22 04:35 98.2 F 90 16 153/79 H 97 11/21/22 20:00 70 18 99 Room Air 06/29/22 19:46 98.3 F 70 18 154/92 H 99 06/29/22 14:00 97.8 F 79 18 152/88 H 99 Intake/Output Intake/Output: Intake & Output 06/27/22 06/28/22 06/29/22 06/30/22 23:59 23:59 23:59 23:59 Intake Total 4560 4720 3318 590 Output Total 300 2850 2750 1050 Balance 4260 1870 568 -460 Meds/Results Medications: Active Medications Generic Name Dose Route Start Last Admin Trade Name Freq PRN Reason Stop Dose Admin Acetaminophen 650 mg 06/29/22 14:39 06/29/22 14:46 Acetaminophen 325 Mg Tablet PO 650 mg Q6H PRN Administration Mild Pain (1-3) or Fever Cyanocobalamin 1,000 mcg 06/30/22 09:00 06/30/22 09:07 Cyanocobalamin 1,000 Mcg Tablet PO 1,000 mcg QAM RYAN Administration Sodium Chloride 1,000 mls @ 50 mls/hr 06/27/22 12:15 06/30/22 09:08 Normal Saline Iv IV CONT Not Given .Q20H RYAN Lorazepam 0.5 mg 06/27/22 17:07 Lorazepam Inj (*Crx) 2 Mg/Ml Vial IV PUSH Q6H PRN Anxiety Ondansetron HCl 4 mg 06/27/22 12:11 06/30/22 00:51 Ondansetron Inj 4 Mg/2 Ml Vial IV PUSH 4 mg Q4H PRN Administration Nausea Radiology Results: ITS Impressions Abdomen/Pelvis CT 06/27/22 12:44 IMPRESSION: 1. Multiple lytic bone lesions in the spine and pelvis suspicious for multiple myeloma with differential including other metastatic disease. 2. Subtle heterogeneous density in the gallbladder lumen suspicious for cholelithiasis. 3. Diverticulosis. 4. Small sliding
[2022-06-30 14:00] VITALS: BP 149/95; PULSE 79; RESP 18; TEMP 37; O2SAT 100
--- NOTE | 2022-06-30 15:23 | PM.IMPN ---
Progress Note: A&P Assessment and Plan (1) Anemia: Code(s): D64.9 - Anemia, unspecified Status: Acute Assessment and Plan: -could be related to her renal failure. Multiple test suggested patient has multiple myeloma. She has the lytic lesions, anemia, normal limits of calcium, and renal failure. -oncology has been consulted. -. Patient's H&H is 8.9 and 26.6. MCV is within normal limits. No recent values to compare this with. Hemoglobin down to 7 and getting 1 unit of packed red blood cell transfusion With appropriate rise. Continue to monitor H&H no active signs of bleeding (2) LALO (acute kidney injury): Code(s): N17.9 - Acute kidney failure, unspecified Status: Acute Assessment and Plan: -continue with IV fluids. -nephrology has been consulted. -may be multiple myeloma. -renal ultrasound was read as following 1. Normal kidneys without hydronephrosis. 2. Cholelithiasis. -BUN 82 creatinine 10.90 estimated GFR is 4. Renal function remains stable / known improving even with trial of IV fluids. She had normal renal function a year ago in May 2021. Possible myeloma kidney Considering renal biopsy (3) Bone metastases: Code(s): C79.51 - Secondary malignant neoplasm of bone Status: Acute Assessment and Plan: -the patient has lytic lesions that resemble multiple myeloma versus metastatic disease. Discussed with Oncology she might need bone marrow biopsy. awaiting electrophoresis test Oncology anticipates need for bone marrow biopsy (4) Anxiety: Code(s): F41.9 - Anxiety disorder, unspecified Status: Acute Assessment and Plan: Pablo Bermeo. Subjective Date/time seen: 06/30/22 15:23 Interval history: This is a 67-year-old female patient who came to the emergency room with complaints of vomiting for the last 7 days.? The patient vomited once this morning.? She has also been having dry heaves.? She denies any abdominal pain.? The patient thought that she was just having the symptoms due to her nerves.? Her is undergoing cancer treatment and has been upsetting to her.? The patient has been complaining of poor appetite with poor oral intake.? The patient is otherwise healthy and does not take any medications.? Her H&H is 8.9 and 26.6.? Her BUN is 82 creatinine 10.9.? Calcium is 10.0.? Her anion gap is 17.? CT of the abdomen and pelvis was read as the following. Multiple lytic bone lesions in the spine and pelvis suspicious for multiple myeloma with differential including other metastatic disease. 2. Subtle heterogeneous density in the gallbladder lumen suspicious for cholelithiasis. 3. Diverticulosis. 4. Small sliding-type hiatal hernia. Renal ultrasound was read as normal kidneys without hydronephrosis.? Cholelithiasis. Nephrology and Oncology have both been consulted. The patient was given IV fluids, Zofran and Ativan in the emergency room. All of these findings were discussed with the patient the concern for multiple myeloma.? I explained to her that she may possibly have a bone marrow biopsy and will be referred to the oncologist.? The patient is being admitted to inpatient services on the date of service of 06/27/2022. 06/28/2022: No overnight events. Feels okay. Denies any chest pain or shortness of breath. 06/29/2022: She had an episode of nausea and vomiting last night. She feels well today. Wonders if she could go home. Denies any chest pain shortness a breath or leg swelling. 06/30/2022: No overnight events. Feels okay. Except for occasional nausea. She states she decided to stay here in [place] for further workup and treatment. Discussed finding so far with the patient. Potentially planning to do bone marrow biopsy/renal biopsy after some of the preliminary lab works are back Review of Systems Review of Systems: All systems reviewed & are unremarkable except as noted in HPI and below Exam Narrative: General appearance:
[2022-06-30 16:46] LABS: Abnormal Protein Band 1 0.5 g/dL; Albumin 3.5 g/dL (3.8-4.8); Alpha 1 Globulin 0.5 g/dL (0.2-0.3); Alpha 2 Globulin 0.9 g/dL (0.5-0.9); Beta 1 Globulin 0.4 g/dL (0.4-0.6); Gamma Globulin 0.7 g/dL (0.8-1.7); Protein, Total 6.4 g/dL (6.1-8.1)
--- NOTE | 2022-06-30 19:27 | WPDONCPN ---
Progress Note: A/P - Additional Plan Multiple myeloma. Labs reviewed. Serum protein electrophoresis showed M spike of 0.5 gram/deciliter. Immunofixation is pending. Patient remains anemic. Renal function remains low but stable. I will proceed with bone marrow aspiration and biopsy. Skeletal survey reviewed. She will follow-up with me in the office. Vitamin B12 deficiency. She will continue vitamin B12 replacement therapy. Acute renal failure. Possibly secondary to multiple myeloma. We will proceed with bone marrow aspiration and biopsy. - Time Spent With Patient Total time spent is greater than 50% in coordination of care (as documented) at patient's floor/unit and/or counseling patient: 15 - 25 minutes Subjective Interval history: Multiple myeloma Review of Systems - Review of Systems Patient is sitting in her bed comfortably. She denies any bone pain. Denies any further nausea vomiting. No fevers and chills. She was anxious about her lab results. No other new complaints. - Neurologic Reports system reviewed and no additional complaints, except as documented, Reports hearing normal Exam Vital signs: Temp Pulse Resp BP Pulse Ox O2 Del Method 37.0 C 79 18 149/95 H 100 Room Air 06/30/22 14:00 06/30/22 14:00 06/30/22 14:00 06/30/22 14:00 06/30/22 14:00 06/30/22 09:30 Narrative: Lungs are clear to auscultation bilaterally Cardiovascular regular rate rhythm no murmurs Abdomen soft nontender nondistended bowel sounds are positive Extremities no edema PN: Objective Data - Labs CBC & Chem 7: 06/30/22 05:20 06/30/22 05:20 Labs: Laboratory Results - last 24 hr 06/27/22 06/30/22 06/30/22 14:00 05:20 05:20 WBC 6.9 RBC 2.81 L Hgb 8.2 L Hct 25.0 L MCV 89.0 MCH 29.2 MCHC 32.8 RDW 13.1 Plt Count 164 MPV 9.1 Immature Gran % (Auto) 0.9 H Neut % (Auto) 70.6 Lymph % (Auto) 18.2 L [place] % (Auto) 7.4 Eos % (Auto) 2.0 Baso % (Auto) 0.9 Lymph # (Auto) 1.25 [place] # (Auto) 0.5 Eos # (Auto) 0.1 Baso # (Auto) 0.1 Abs Immat Gran (auto) 0.06 H Absolute Neuts (auto) 4.8 Absolute Nucleated RBC 0.0 Nucleated RBC % 0.0 Sodium 139 Potassium 3.9 Chloride 110 H Carbon Dioxide 18 L Anion Gap 11 BUN 60 H Creatinine 10.10 H Estim Creat Clear Calc 5 Estimated GFR 4 L Glucose 102 Calcium 8.7 Phosphorus 5.2 H Magnesium 1.5 L Total Bilirubin 0.5 AST 14 ALT 10 Alkaline Phosphatase 66 Total Protein 6.4 7.0 Albumin 3.5 L 3.5 Trxty-5-Roxritijb 0.5 H Omqrf-7-Evbxmvpvy 0.9 Knly-5-Zonuxyqy 0.4 Qtko-2-Cbxmksbd 0.5 Gamma Globulins 0.7 L Abnorm Protein Band 1 0.5 H Abnorm Protein Band 3 Not Reportable PEP Interpretation see below A
[2022-06-30 20:00] VITALS: PULSE 72; RESP 18; O2SAT 100
[2022-06-30 20:02] VITALS: PULSE 72; RESP 18; TEMP 36.8; O2SAT 100
[2022-06-30 20:17] VITALS: BP 173/88
[2022-07-01 04:43] VITALS: BP 156/80; PULSE 88; RESP 18; TEMP 36.5; O2SAT 98
[2022-07-01 06:03] LABS: Basophils Absolute Auto 0.1 K/mm3 (0.0-0.1); Basophils Percent Auto 0.7 % (0.2-1.2); Eosinophils Absolute Auto 0.2 K/mm3 (0-0.3); Eosinophils Percent Auto 2.3 % (0-4.4); Hematocrit 24.5 % (37.0-47.0); Immature Granulocyte Absolute 0.05 K/mm3 (0.00-0.031); Immature Granulocyte Percent A 0.7 % (0-0.5); Lymphocytes Absolute Auto 1.31 K/mm3 (0.9-3.2); Lymphocytes Percent Auto 17.7 % (18.3-44.2); Mean Corpuscular HGB Conc 32.7 g/dl (32-36); Mean Corpuscular Hemoglobin 29.2 pg (26-34); Mean Corpuscular Volume 89.4 fl (80-100); Mean Platelet Volume 9.1 fl (7.4-10.4); Monocytes Absolute Auto 0.6 K/mm3 (0.1-0.6); Monocytes Percent Auto 8.5 % (2.6-8.5); Neutrophils Absolute Auto 5.2 K/mm3 (1.3-6.7); Neutrophils Percent Auto 70.1 % (45.5-73.1); Platelet Count Result 172 k/mm3 (150-375); Red Blood Count 2.74 M/mm3 (4.2-5.4); Red Cell Distribution Width 13.2 % (11.5-14.5); White Blood Count 7.4 K/mm3 (4.5-10.0)
[2022-07-01 06:20] LABS: Alanine Aminotransferase 11 U/L (6-35); Albumin Level 3.5 g/dL (3.5-5.1); Alkaline Phosphatase 67 U/L (38-126); Anion Gap 14 mmol/L (8-16); Aspartate Amino Transferase 14 U/L (14-36); Bilirubin,Total 0.4 mg/dL (0.2-1.3); Blood Urea Nitrogen 58 mg/dL (7-17); Calcium 8.9 mg/dL (8.4-10.2); Carbon Dioxide 18 mmol/L (22-30); Chloride 108 mmol/L (98-107); Estimated CRCL calculation 5 ml/min; Estimated Glomerular Filt Rate 4; Glucose 103 mg/dL (65-110); Magnesium 1.5 mg/dL (1.6-2.3); Phosphorus 5.2 mg/dL (2.5-4.5); Potassium 3.9 mmol/L (3.4-5.0); Sodium 140 mmol/L (137-145)
[2022-07-01 08:21] LABS: Prothrombin Time 13.1 Seconds (11.1-14.7)
--- NOTE | 2022-07-01 10:23 | WPDMODSED ---
Moderate Sedation Note-Pt Data Patient Data Diagnosis: Multiple myeloma. Present Complaint: Multiple myeloma. Procedure to be performed/Plan: Fluoro-guided bone marrow biopsy of ilium. Allergies Allergy/AdvReac Type Severity Reaction Status Date / Time No Known Allergies Allergy Verified 06/27/22 15:28 Home Medications Medication Instructions Recorded Confirmed Type No Home Medications 06/27/22 06/27/22 History Current Medications: Active Medications Acetaminophen (Acetaminophen 325 Mg Tablet) 650 mg PO Q6H PRN PRN Reason: Mild Pain (1-3) or Fever Last Admin: 06/29/22 14:46 Dose: 650 mg Cyanocobalamin (Cyanocobalamin 1,000 Mcg Tablet) 1,000 mcg PO QAM RYAN Last Admin: 06/30/22 09:07 Dose: 1,000 mcg Lorazepam (Lorazepam Inj (*Crx) 2 Mg/Ml Vial) 0.5 mg IV PUSH Q6H PRN PRN Reason: Anxiety Magnesium Oxide (Magnesium Oxide 400 Mg Tablet) 400 mg PO QAM RYAN Neomycin/Polymyxin/Bacitracin (Neomycin/Polymyxin/Bacitracin Ointment 15 Gm Tube) 1 applic TOPICAL PRN PRN PRN Reason: with dressing changes Ondansetron HCl (Ondansetron Inj 4 Mg/2 Ml Vial) 4 mg IV PUSH Q4H PRN PRN Reason: Nausea Last Admin: 06/30/22 00:51 Dose: 4 mg Sedation/Anesthesia: No previous sedation/anesthesia problems (including family history). [facility] Past Medical History Medical History (Updated 06/28/22 @ 12:27 by Savage Santana MD) Anxiety Surgical History Surgical History (Updated 06/29/22 @ 18:38 by Braden Marti MD) H/O foot surgery right foot H/O: hysterectomy History of removal of pigmented skin lesion Family History Family History (Updated 06/27/22 @ 13:45 by Yolanda Sandhu NP) Mother Diabetes mellitus Hypertension History of kidney cancer Father Lung cancer Anemia Sibling Bladder cancer Sibling Thyroid cancer Social History Social History (Updated 06/27/22 @ 16:57 by Yolanda Sandhu NP) Social History: The patient lives with her who recently started undergoing chemotherapy for cancer. They have 4 children. She is retired from [employer]. She is a lifelong nonsmoker. She does occasionally drink alcohol. She does not use any marijuana or illicit drugs. 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 Code status full code Smoking status: Never smoker Second hand tobacco smoke exposure: No Alcohol intake: former Drinks per week: 7 Substance use: never Substance use type: does not use Lack of Transportation: No Lack of Food: Never True Current Housing: I Have Housing Concerned About Future Housing: No Difficulty Paying Gas/Electric Bills: No Difficulty Paying for Meds: No Currently Unemployed: No Education: High School Diploma/GED Difficulty w/ Childcare or Family Care: No Spiritual care concerns: No Mod Sed Physical Exam Physical Exam Pre Procedural Exam: Normal: Airway, Lungs, Heart Rate and Heart Rhythm Hours since solid foods: 11 Hours since liquid intake: 11 Mallampati Classification: class II Internal Medicine - PN: Obj Da Vital Signs Vital Signs: Vital Signs - 24 hr 06/30/22 14:00 06/30/22 20:02 06/30/22 20:17 Temperature 37.0 C 36.8 C Pulse Rate 79 72 Respiratory Rate 18 18 Blood Pressure 149/95 H 173/88 H Pulse Oximetry 100 100 Oxygen Delivery 06/30/22 20:00 07/01/22 04:43 Temperature 36.5 C Pulse Rate 72 88 Respiratory Rate 18 18 Blood Pressure 156/80 H Pulse Oximetry 100 98 Oxygen Delivery Room Air Intake/Output Intake/Output: Intake & Output 06/28/22 06/29/22 06/30/22 07/01/22 23:59 23:59 23:59 23:59 Intake Total 4720 3318 1710 450 Output Total 2850 2750 1850 1800 Balance 1870 568 140 -1350 Meds/Results Medications: Active Medications Generic Name Dose Route Start Last Admin Trade Name Freq PRN Reason Stop Dose Admin Acetaminophen 650 mg 06/29/22 14:39 06/29/22 14:46 Acetaminophen 325 Mg Tablet PO 650 mg Q6H PRN Administration Mild Pain (1-3) or Fe
[2022-07-01 10:47] VITALS: BP 167/86; PULSE 72; RESP 18; TEMP 36.6; O2SAT 100
[2022-07-01] MEDS: MAGNESIUM SULF 2 GM/WATER 50ML 2 GM/50 ML BAG IVPB (10:54)
[2022-07-01] MEDS: CYANOCOBALAMIN 1,000 MCG TABLET 1000 MCG PO (10:55)
[2022-07-01] MEDS: MAGNESIUM OXIDE 400 MG TABLET PO (10:56)
--- NOTE | 2022-07-01 12:54 | P.PNNP_ITS ---
Progress Note: A&P Assessment and Plan (1) LALO (acute kidney injury): Code(s): N17.9 - Acute kidney failure, unspecified Status: Acute Assessment and Plan: * normal renal function as of May 2021 * concern is this may be secondary to multiple myeloma * imaging with lytic bone lesions would support this * however, do not want to discount some other pathology * evaluation to date: * imaging (CT scan and renal ultrasound) without any acute pathology * urine electrolytes are non-prerenal * urine eosinophils present ( rare ) * 2800mg of proteinuria * serologies pending * remains at risk for needing POISER/dialysis, however: * no critical electrolyte abnormalities * no evidence of volume overload * no severe metabolic acidosis * questionable uremia (symptoms of nausea/vomiting) * consider renal biopsy for definitive diagnosis of LALO/ARF -- this could be done as an outpatient * follow repeat labs and UOP (2) Nausea & vomiting: Code(s): R11.2 - Nausea with vomiting, unspecified Status: Acute Assessment and Plan: * presumably due to LALO/ARF +/- uremia * IV antiemetics * supportive care (3) Lytic bone lesions on xray: Code(s): M89.9 - Disorder of bone, unspecified Status: Acute Assessment and Plan: * as noted by admission imaging * concerning for possible multiple myeloma or metastatic disease * SPEP, UPEP, kappa/lamda ratio, serum/urine immunofixation pending * skeletal survey results noted * Hem/Onc recommendations noted * s/p bone marrow biopsy today (4) Anemia: Code(s): D64.9 - Anemia, unspecified Status: Acute Assessment and Plan: * likely related to LALO/ARF and possible underlying malignancy * follow H/H * PRBC transfusion per protocol; * empiric dose of Epogen today * anemia studies with adequate iron stores Will continue to follow. Subjective Date/time seen: 07/01/22 12:54 Status post bone marrow biopsy earlier this morning and tolerated the procedure reasonably well; no other acute isseus or problems voiced; still has intermittent nausea/dry heaves but antiemetics help. Exam Narrative: General: WD/WN female in NAD Heart: normal S1 and S2; no rub Lungs: clear to auscultation Abdomen: soft, nontender, nondistended, positive bowel sounds Extremities: no cyanosis or clubbing; no edema Skin: warm and dry Objective Data Vital Signs Vital Signs: Vital Signs Temp Pulse Resp BP Pulse Ox O2 Del Method 07/01/22 10:47 97.8 F 72 18 167/86 H 100 07/01/22 04:43 97.7 F 88 18 156/80 H 98 06/30/22 20:00 72 18 100 Room Air 06/30/22 20:17 173/88 H 06/30/22 20:02 98.3 F 72 18 100 06/30/22 14:00 98.6 F 79 18 149/95 H 100 Intake/Output Intake/Output: Intake & Output 06/28/22 06/29/22 06/30/22 07/01/22 23:59 23:59 23:59 23:59 Intake Total 4720 3318 1710 500 Output Total 2850 2750 1850 1800 Balance 1870 568 -140 -1300 Meds/Results Medications: Active Medications Generic Name Dose Route Start Last Admin Trade Name Freq PRN Reason Stop Dose Admin Acetaminophen 650 mg 06/29/22 14:39 06/29/22 14:46 Acetaminophen 325
--- NOTE | 2022-07-01 12:54 | PM.PNNEP ---
Progress Note: A&P Assessment and Plan (1) LALO (acute kidney injury): Code(s): N17.9 - Acute kidney failure, unspecified Status: Acute Assessment and Plan: normal renal function as of May 2021 concern is this may be secondary to multiple myeloma imaging with lytic bone lesions would support this however, do not want to discount some other pathology evaluation to date: imaging (CT scan and renal ultrasound) without any acute pathology urine electrolytes are non-prerenal urine eosinophils present ( rare ) 2800mg of proteinuria serologies pending remains at risk for needing PATIENT CARE COORDINATOR/dialysis, however: no critical electrolyte abnormalities no evidence of volume overload no severe metabolic acidosis questionable uremia (symptoms of nausea/vomiting) consider renal biopsy for definitive diagnosis of LALO/ARF -- this could be done as an outpatient follow repeat labs and UOP (2) Nausea & vomiting: Code(s): R11.2 - Nausea with vomiting, unspecified Status: Acute Assessment and Plan: presumably due to LALO/ARF +/- uremia IV antiemetics supportive care (3) Lytic bone lesions on xray: Code(s): M89.9 - Disorder of bone, unspecified Status: Acute Assessment and Plan: as noted by admission imaging concerning for possible multiple myeloma or metastatic disease SPEP, UPEP, kappa/lamda ratio, serum/urine immunofixation pending skeletal survey results noted Hem/Onc recommendations noted s/p bone marrow biopsy today (4) Anemia: Code(s): D64.9 - Anemia, unspecified Status: Acute Assessment and Plan: likely related to LALO/ARF and possible underlying malignancy follow H/H PRBC transfusion per protocol; empiric dose of Epogen today anemia studies with adequate iron stores Will continue to follow. Subjective Date/time seen: 07/01/22 12:54 Status post bone marrow biopsy earlier this morning and tolerated the procedure reasonably well; no other acute isseus or problems voiced; still has intermittent nausea/dry heaves but antiemetics help. Exam Narrative: General: WD/WN female in NAD Heart: normal S1 and S2; no rub Lungs: clear to auscultation Abdomen: soft, nontender, nondistended, positive bowel sounds Extremities: no cyanosis or clubbing; no edema Skin: warm and dry Objective Data Vital Signs Vital Signs: Vital Signs Temp Pulse Resp BP Pulse Ox O2 Del Method 07/01/22 10:47 97.8 F 72 18 167/86 H 100 07/01/22 04:43 97.7 F 88 18 156/80 H 98 06/30/22 20:00 72 18 100 Room Air 06/30/22 20:17 173/88 H 06/30/22 20:02 98.3 F 72 18 100 06/30/22 14:00 98.6 F 79 18 149/95 H 100 Intake/Output Intake/Output: Intake & Output 06/28/22 06/29/22 06/30/22 07/01/22 23:59 23:59 23:59 23:59 Intake Total 4720 3318 1710 500 Output Total 2850 2750 1850 1800 Balance 1870 568 -140 -1300 Meds/Results Medications: Active Medications Generic Name Dose Route Start Last Admin Trade Name Freq PRN Reason Stop Dose Admin Acetaminophen 650 mg 06/29/22 14:39 06/29/22 14:46 Acetaminophen 325 Mg Tablet PO 650 mg Q6H PRN Administration Mild Pain (1-3) or Fever Cyanocobalamin 1,000 mcg 06/30/22 09:00 07/01/22 10:55 Cyanocobalamin 1,000 Mcg Tablet PO 1,000 mcg QAM RYAN Administration Lorazepam 0.5 mg 06/27/22 17:07 Lorazepam Inj (*Crx) 2 Mg/Ml Vial IV PUSH Q6H PRN Anxiety Magnesium Oxide 400 mg 07/01/22 09:00 07/01/22 10:56 Magnesium Oxide 400 Mg Tablet PO 400 mg QAM RYAN Administration Neomycin/Polymyxin/Bacitracin 1 applic 06/30/22 19:27 Neomycin/Polymyxin/Bacitracin Ointment 15 Gm Tube TOPICAL PRN PRN with dressing changes Ondansetron HCl 4 mg 06/27/22 12:11 06/30/22 00:51 Ondansetron Inj 4 Mg/2 Ml Vial IV PUSH 4 mg Q4H PRN Administration Nausea Radiology Results: ITS
[2022-07-01 13:22] VITALS: BP 164/94; PULSE 69; RESP 18; TEMP 36.9; O2SAT 99
--- NOTE | 2022-07-01 15:29 | PM.DS ---
DS: Admitting Diagnosis Discharge Date 07/01/2022 Admitting Diagnosis Nausea vomiting and diarrhea. DS: Discharge Diagnosis Discharge Diagnosis (1) Anemia: Code(s): D64.9 - Anemia, unspecified Status: Acute Assessment and Plan: -could be related to her renal failure. Multiple test suggested patient has multiple myeloma. She has the lytic lesions, anemia, normal limits of calcium, and renal failure. -oncology has been consulted. -. Patient's H&H is 8.9 and 26.6. MCV is within normal limits. No recent values to compare this with. Hemoglobin down to 7 and getting 1 unit of packed red blood cell transfusion With appropriate rise. Continue to monitor H&H no active signs of bleeding (2) LALO (acute kidney injury): Code(s): N17.9 - Acute kidney failure, unspecified Status: Acute Assessment and Plan: -continue with IV fluids. -nephrology has been consulted. -may be multiple myeloma. -renal ultrasound was read as following 1. Normal kidneys without hydronephrosis. 2. Cholelithiasis. -BUN 82 creatinine 10.90 estimated GFR is 4. Renal function remains stable / known improving even with trial of IV fluids. She had normal renal function a year ago in May 2021. Possible myeloma kidney Considering renal biopsy (3) Bone metastases: Code(s): C79.51 - Secondary malignant neoplasm of bone Status: Acute Assessment and Plan: -the patient has lytic lesions that resemble multiple myeloma versus metastatic disease. Discussed with Oncology she might need bone marrow biopsy. awaiting electrophoresis test Oncology anticipates need for bone marrow biopsy (4) Anxiety: Code(s): F41.9 - Anxiety disorder, unspecified Status: Acute Assessment and Plan: P.rdarryl Bermeo. DS: Summary Hospital Course Reason for hospitalization: Chief Complaint: Nausea vomiting and diarrhea. Narrative: This is a 67-year-old female patient who came to the emergency room with complaints of vomiting for the last 7 days.? The patient vomited once this morning.? She has also been having dry heaves.? She denies any abdominal pain.? The patient thought that she was just having the symptoms due to her nerves.? Her is undergoing cancer treatment and has been upsetting to her.? The patient has been complaining of poor appetite with poor oral intake.? The patient is otherwise healthy and does not take any medications.? Her H&H is 8.9 and 26.6.? Her BUN is 82 creatinine 10.9.? Calcium is 10.0.? Her anion gap is 17.? CT of the abdomen and pelvis was read as the following. Multiple lytic bone lesions in the spine and pelvis suspicious for multiple myeloma with differential including other metastatic disease. 2. Subtle heterogeneous density in the gallbladder lumen suspicious for cholelithiasis. 3. Diverticulosis. 4. Small sliding-type hiatal hernia. Renal ultrasound was read as normal kidneys without hydronephrosis.? Cholelithiasis. Nephrology and Oncology have both been consulted. The patient was given IV fluids, Zofran and Ativan in the emergency room. All of these findings were discussed with the patient the concern for multiple myeloma.? I explained to her that she may possibly have a bone marrow biopsy and will be referred to the oncologist.? The patient is being admitted to inpatient services on the date of service of 06/27/2022. Hospital Course: -the patient has lytic lesions that resemble multiple myeloma versus metastatic disease. Discussed with Oncology she might need bone marrow biopsy.? ?awaiting electrophoresis test Oncology anticipates need for bone marrow biopsy patient with suspected multiple myeloma had a bone marrow biopsy today, patient remains clinically stable patient will follow-up with her oncologist and Nephrology as soon as possible. Time Spent with Patient Time attestation: Total time spent providing and/or coordinating discharge services: Exam Narrative: General marija
[2022-07-02 03:50] LABS: Hepatitis B Core Ab Total Nonreactive (Nonreactive)
[2022-07-03 17:19] LABS: Chloride Rand Ur 74 mmol/L (32-290); Chloride/Creatinine Rand Ur 151 (38-318); Creatinine Random Urine 49 mg/dL (20-275)
[2022-07-03 18:54] LABS: Anti Glomerular Basement Memb <1.0 AI (<1.0)
[2022-07-03 21:29] LABS: Complement Total CH50 >60 U/mL (31-60)
[2022-07-06 16:23] LABS: Cryoglobulin, QL Negative (Negative)
[2022-07-06 23:33] LABS: Abnormal Protein Band 1 189 mg/dL; Creatinine, Random Urine 47 mg/dL (20-275); Total Protein/Creatinine Ratio 4745 mg/g creat (24-184)
[2022-07-08 21:06] LABS: ANCA Screen Negative (Negative)
== END 2022-07-01 16:10 | disposition home or self-care (01) | DRG 683 ==
LOC: ANHED 13:09 → ANH3MED 13:45
PROVIDERS: Internal Medicine; Internal Medicine Hematology & Oncology; Internal Medicine Nephrology; Nurse Practitioner; Radiology Diagnostic Radiology; Admitting Provider Internal Medicine; Emergency Provider Emergency Medicine; Visit Provider Family Medicine
PROC: 079T3ZX Drainage of Bone Marrow, Percutaneous Approach, Diagnostic (ICD-10-PCS; principal; 2022-07-01 10:00)
DX: N17.9 Acute kidney failure, unspecified (principal); C90.00 Multiple myeloma not having achieved remission; D64.9 Anemia, unspecified; F41.9 Anxiety disorder, unspecified; E53.8 Deficiency of other specified B group vitamins; Z82.49 Family history of ischemic heart disease and other diseases of the circulatory system; Z83.3 Family history of diabetes mellitus; Z80.52 Family history of malignant neoplasm of bladder; Z80.51 Family history of malignant neoplasm of kidney; Z80.1 Family history of malignant neoplasm of trachea, bronchus and lung; Z80.8 Family history of malignant neoplasm of other organs or systems; Z92.21 Personal history of antineoplastic chemotherapy
CPT/HCPCS: 36415; 36430; 38222; 74176; 76775; 77075; 80053; 80069; 80074; 81001; 81050; 82436; 82550; 82570; 82595; 82607; 82728; 82746; 82784; 83520; 83540; 83550; 83690; 83735; 83874; 83883; 84100; 84155; 84156; 84165; 84166; 84300; 84443; 84540; 85025; 85610; 85999; 86036; 86038; 86160; 86162; 86225; 86235; 86334; 86335; 86704; 86706; 86850; 86900; 86901; 86923; 87340; 88184; 88185; 88305; 88311; 88313; 88341; 88342; 99285; A9270; J0131; J1642; J2060; J2250; J2405; J3010; J3475; J7030; J7040; J7050; P9016

== ENCOUNTER 2024-04-14 10:51 | Observation (INO) | payer MEDICARE, SELFPAY ==
[2024-04-14] VITALS (12 sets, daily range): BP systolic 84–99; BP diastolic 52–68; PULSE 50–92; RESP 14–20; TEMP 36.2–37; O2SAT 93–100
--- NOTE | ~2024-04-14 | XR_ITS ---
EXAMINATION: XR chest 2V 04/14/2024 12:18 INDICATION: Weakness. Covid positive. PROCEDURE: 2 view chest COMPARISON: No prior studies for comparison. FINDINGS: The lungs are clear. The cardiomediastinal silhouette is within normal limits. There are no pleural effusions. There is no pneumothorax suspected. IMPRESSION: 1: NO ACUTE CARDIOPULMONARY DISEASE. Reviewed, dictated and finalized at location B.
--- NOTE | ~2024-04-14 | CT_ITS ---
EXAMINATION: CT abdomen pelvis wo con DATE: 04/14/2024 16:27 INDICATION: Diarrhea. TECHNIQUE: Computed tomography (CT) of the abdomen and pelvis was performed without intravenous contr ast. Automated exposure control and iterative reconstruction technique were employed. The dose-length product was 360.59 mGy-cm. COMPARISON: CT abdomen and pelvis 06/27/2022 FINDINGS: The visualized portions of lung bases demonstrate mild atelectasis. No pleural effusion. Th e heart size is normal. No pericardial effusion. There are coronary artery calcifications. There is a small sliding hiatal hernia. The liver is normal. There is a gallstone in the gallbladder, which is normal in size. The spleen, pancreas, adrenal glands, and kidneys are normal. There is liquid stool i n colon correlating with the symptom of diarrhea. The transverse colon is distended. There is diverti culosis of the colon without evidence of diverticulitis. The appendix is normal. There are no patholo gically enlarged lymph nodes. There is no free intraperitoneal fluid. There are chronic compression f ractures of T11 and T12. There are widespread lytic lesions of bone. IMPRESSION: 1. Distended transverse colon, likely adynamic ileus. 2. Small sliding hiatal hernia. 3. Widespread lytic lesions of bone, stable from 06/27/2022, consistent with multiple myeloma. Reviewed, dictated and finalized at location A. IMPRESSION: 1. Distended transverse colon, likely adynamic ileus. 2. Small sliding hiatal hernia. 3. Widespread lytic lesions of bone, stable from 06/27/2022, consistent with mu ltiple myeloma.
--- NOTE | ~2024-04-14 | XR_ITS ---
EXAMINATION: XR abdomen/kub 1V DATE: 04/15/2024 12:52 INDICATION: Ileus. TECHNIQUE: A supine view of the abdomen on 2 radiographs was obtained. COMPARISON: CT abdomen and pelvis 04/14/2024 FINDINGS: There are no dilated loops of bowel. There is a paucity of stool in the colon. There are ph leboliths in the pelvis. IMPRESSION: 1. Normal bowel gas pattern. Reviewed, dictated and finalized at location A.
--- NOTE | 2024-04-14 11:53 | ECG_ITS ---
Test Date: 2024-04-14 12:20:44 Measurements Intervals [place] Rate: 53 P: 56 GA: 206 QRS: 9 QRSD: 121 T: 62 QT: 450 QTc: 424 Interpretive Statements SINUS BRADYCARDIA BORDERLINE AV CONDUCTION DELAY CONSIDER ANTERIOR INFARCT, AGE INDETERMINATE INFERIOR INFARCT, AGE INDETERMINATE BASELINE ARTIFACT- I, II, III, AVR, AVL, AVF, V4-V6 ABNORMAL ECG No previous ECG available for comparison Electronically Signed On 04-14-2024 15:26:30 CDT by Randy Azar D.O.
[2024-04-14 12:17] LABS: Basophils Percent Auto 0.8 % (0.2-1.2); Eosinophils Absolute Auto 0.2 K/mm3 (0-0.3); Eosinophils Percent Auto 5.5 % (0-4.4); Hematocrit 22.4 % (37.0-47.0); Hemoglobin 7.9 g/dL (12.0-15.0); Immature Granulocyte Absolute 0.02 K/mm3 (0.00-0.031); Immature Granulocyte Percent A 0.5 % (0-0.5); Immature Platelet Fraction Pct 5.2 % (0.9-11.2); Lymphocytes Absolute Auto 0.75 K/mm3 (0.9-3.2); Lymphocytes Percent Auto 18.9 % (18.3-44.2); Mean Corpuscular HGB Conc 35.3 g/dl (32-36); Mean Corpuscular Hemoglobin 31.6 pg (26-34); Mean Corpuscular Volume 89.6 fl (80-100); Mean Platelet Volume 11.9 fl (7.4-10.4); Monocytes Absolute Auto 0.2 K/mm3 (0.1-0.6); Monocytes Percent Auto 5.8 % (2.6-8.5); Neutrophils Absolute Auto 2.7 K/mm3 (1.3-6.7); Neutrophils Percent Auto 68.5 % (45.5-73.1); Platelet Count Result 80 k/mm3 (150-375); Red Cell Distribution Width 13.2 % (11.5-14.5)
[2024-04-14 12:27] LABS: Alanine Aminotransferase 11 U/L (6-35); Albumin Level 3.7 g/dL (3.5-5.1); Alkaline Phosphatase 83 U/L (38-126); Anion Gap 16 mmol/L (4-12); Aspartate Amino Transferase 13 U/L (14-36); Bilirubin,Total 0.4 mg/dL (0.2-1.3); Blood Urea Nitrogen 70 mg/dL (7-17); Calcium 8.6 mg/dL (8.4-10.2); Carbon Dioxide 19 mmol/L (22-30); Chloride 89 mmol/L (98-107); Estimated Glomerular Filt Rate 9; Glucose 115 mg/dL (65-110); Potassium 2.1 mmol/L (3.4-5.0); Sodium 124 mmol/L (137-145)
--- NOTE | 2024-04-14 12:32 | ED.WEAKNESS ---
HPI - Weakness General Chief complaint: Weakness Stated complaint: dehydrated Time Seen by Provider: 04/14/24 11:59 Source: patient and family Limitations: no limitations History of Present Illness HPI Narrative: Patient presents with complaint of generalized weakness and concern for dehydration. She was recently diagnosed with COVID and she feels like she is not getting better. She has a history of multiple myeloma for which she is on a medication that she was to take every other day for 3 weeks the this was suspended 4 days ago it was felt that might be contributing to her diarrhea. She also complains of nausea and vomiting. She has had decreased p.o. intake. Her last oral intake was some yogurt today. A few years ago she was diagnosed with end-stage renal disease and require dialysis at that time but notes that she had some recovery of her kidney function and now has CKD. No previous diagnosis of hypertension, not on antihypertensives. Not currently on any potassium repletion although she had required this previously. She notes at 1 point she was noted to be hypokalemic and required repletion however then she became hyperkalemic and required an emergency department visit. Not currently having nausea since she has not eaten this afternoon. Related Data Home Medications Medication Instructions Recorded Confirmed Adult Low Dose Aspirin 81 mg BYMOUTH HS 04/14/24 04/14/24 calcitriol 0.25 mcg capsule 0.25 mcg PO DAILY 04/14/24 04/14/24 cyanocobalamin (vitamin B-12) 500 500 mcg PO DAILY 04/14/24 04/14/24 mcg tablet lenalidomide 5 mg capsule 5 mg PO DAILY 04/14/24 04/15/24 sertraline 50 mg tablet 50 mg PO DAILY 04/14/24 04/14/24 sodium bicarbonate 650 mg tablet 650 mg PO BID 04/14/24 04/14/24 Allergies Allergy/AdvReac Type Severity Reaction Status Date / Time No Known Allergies Allergy Verified 06/27/22 15:28 [facility] Past Medical History Medical History (Updated 04/14/24 @ 18:45 by Shaneka Paniagua APRN) Anemia Anxiety CKD (chronic kidney disease) First degree AV block History of end stage renal disease Previously required dialysis; no longer Multiple myeloma Sliding hiatal hernia Surgical History Surgical History (Updated 06/29/22 @ 18:38 by Braden Marti MD) H/O foot surgery right foot H/O: hysterectomy History of removal of pigmented skin lesion Family History Family History (Updated 04/14/24 @ 21:29 by Eliane Sandhu RN) Mother Diabetes mellitus History of kidney cancer Hypertension Father Anemia Lung cancer Sibling Bladder cancer Sibling Thyroid cancer Son Diabetes mellitus Social History Social History (Updated 06/27/22 @ 16:57 by Yolanda Sandhu NP) Social History: The patient lives with her who recently started undergoing chemotherapy for cancer. They have 4 children. She is retired from [employer]. She is a lifelong nonsmoker. She does occasionally drink alcohol. She does not use any marijuana or illicit drugs. Power privacy attorney is her . Code status full code Smoking status: Never smoker Second hand tobacco smoke exposure: No Alcohol intake: never Drinks per week: 7 Substance use: never Substance use type: does not use Do You Feel Safe in your Home?: Yes Lack of Transportation: No Lack of Food: Never True Current Housing: I Have Housing Concerned About Future Housing: No Difficulty Paying Gas/Electric Bills: No Difficulty Paying for Meds: No Currently Unemployed: No Education: High School Diploma/GED Difficulty w/ Childcare or Family Care: No Spiritual care concerns: No Exam Narrative: GENERAL: Acutely mildly ill-appearing, though in no acute distress. HEAD: Normocephalic, atraumatic. EYES: Non injected, non icteric ENT: Nares clear, no rhinorrhea or epistaxis. NECK: Supple. CHEST: Speaking in full sentences. No respiratory distress. HEART: Regular rate and rhythm. ABDOMEN: Soft, nondistended
[2024-04-14 12:39] LABS: Magnesium 1.2 mg/dL (1.6-2.3); Phosphorus 4.4 mg/dL (2.5-4.5)
[2024-04-14] MEDS: SODIUM CHLORIDE 0.9% IV 1,000 ML 999 ML IV CONT ×2 (13:17→17:11)
[2024-04-14] MEDS: MAGNESIUM SULF 1 GM/D5W 100 ML 1 GM/100 ML BAG IVPB (13:46)
[2024-04-14] MEDS: KCL 20 MEQ/SW 100 ML 100 ML 50 MEQ IVPB ×2 (13:48→17:12)
[2024-04-14 14:05] LABS: Add Urine Microscopic? YES; Appearance Urine Clear (Clear); Bacteria Urine None Seen /hpf; Bilirubin Urine Negative (Negative); Blood Urine Negative (Negative); Color Urine Yellow (Yellow); Glucose Urine UA Negative (Negative); Ketones Urine Negative (Negative); Leukocyte Esterase Ur Negative LEU/UL (Negative); Nitrate Urine Negative (Negative); Non Pathogenic Casts 0-2; Protein Urine Trace mg/dL (Negative); RBC Urine 0-2 /hpf (0-2); Squamous Epithelial Cell Urine None Seen /hpf (Few); Urobilinogen Urine 0.2 mg/dL (<2.0); WBC Urine 0-5 /hpf (0-3); pH Urine 5.5 (5.0-9.0)
[2024-04-14] MEDS: POTASSIUM BICARBONATE 25 MEQ TABEF 50 MEQ PO ×3 (14:52→22:29)
[2024-04-14 15:17] LABS: Anion Gap 13 mmol/L (4-12); Blood Urea Nitrogen 68 mg/dL (7-17); Carbon Dioxide 19 mmol/L (22-30); Chloride 91 mmol/L (98-107); Estimated Glomerular Filt Rate 10; Glucose 107 mg/dL (65-110); Magnesium 1.9 mg/dL (1.6-2.3); Potassium 2.4 mmol/L (3.4-5.0); Sodium 123 mmol/L (137-145)
[2024-04-14 15:45] LABS: Thyroid Stimulating Hormone 0.723 uIU/mL (0.465-4.680)
--- NOTE | 2024-04-14 17:33 | PC.NURSE ---
ordered tray at 4420
--- NOTE | 2024-04-14 18:03 | PM.IMHP ---
H&P: HPI History of Present Illness Date/Time: 04/14/24 18:03 Chief Complaint: Nausea, Vomiting, Diarrhea Narrative: 69 y/o F presents here nausea, vomiting and diarrhea with PMH of multiple myeloma, CKD (previously needed temporary HD), and anxiety. The patient presents here from home for further evaluation of nausea, vomiting, diarrhea, and weakness. She reports that she tested positive for COVID approximately 3 weeks ago and has been feeling unwell since then. The nausea and vomiting it is accompanied by decreased p.o. intake, last able to tolerate yogurt this morning. She reports onset of nausea and vomiting for 2-3 weeks and diarrhea has been chronic since initiation of the medication for her multiple myeloma - lenalidomide. She estimates she has had 5 stools in the last 24 hours despite 4 doses of Imodium. Denies melena or hematochezia. Patient is on medications for her multiple myeloma which was diagnosed in 2021. She is on XX for the MM for the past 3 weeks, patient contacted her oncologist we suspended the medication approximately 3-4 days ago due to the concern that it may be contributing to her diarrhea. Of note, patient had acute renal failure in 2021 when she was initially diagnosed with MM. 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 While post-transplant and while she was on chemo she was started on dialysis and had treatments for about 6 months (stopped in Sep). Patient follows with a switching clerk in [place]. Initial VS at presentation: 97.2? F, HR 92, RR 18, 8453, and 98% on RA. ED workup showed: WBC 4.0, hemoglobin 7.9, platelet count 80, potassium 2.1, sodium 124, creatinine 4.9 and GFR 9 (per patient was 4.4 and GFR 11 approx 1 month ago), and normal TSH. UA unremarkable. CXR showed no acute cardiopulmonary disease. CT of the abdomen/pelvis showed a distended transverse colon likely adynamic ileus, small sliding hiatal hernia, and widespread lytic lesions of the bone that are stable since 2021 and consistent with multiple myeloma. Review of Systems Review of Systems: All systems reviewed & are unremarkable except as noted in HPI and below PMFSH Past Medical History Medical History (Updated 04/14/24 @ 18:45 by Shaneka Paniagua, [place]) Anemia Anxiety CKD (chronic kidney disease) First degree AV block History of end stage renal disease Previously required dialysis; no longer Multiple myeloma Sliding hiatal hernia Surgical History Surgical History (Updated 06/29/22 @ 18:38 by Braden Marti MD) H/O foot surgery right foot H/O: hysterectomy History of removal of pigmented skin lesion Family History Family History (Updated 06/27/22 @ 13:45 by Yolanda Sandhu NP) Mother Diabetes mellitus Hypertension History of kidney cancer Father Lung cancer Anemia Sibling Bladder cancer Sibling Thyroid cancer Social History Social History (Updated 06/27/22 @ 16:57 by Yolanda Sandhu NP) Social History: The patient lives with her who recently started undergoing chemotherapy for cancer. They have 4 children. She is retired from [employer]. She is a lifelong nonsmoker. She does occasionally drink alcohol. She does not use any marijuana or illicit drugs. Power finance attorney is her . Code status full code Smoking status: Never smoker Second hand tobacco smoke exposure: No Alcohol intake: former Drinks per week: 7 Substance use: never Substance use type: does not use Lack of Transportation: No Lack of Food: Never True Current Housing: I Have Housing Concerned About Future Housing: No Difficulty Paying Gas/Electric Bills: No Difficulty Paying for Meds: No Currently Unemployed: No Education: High School Diploma/GED Difficulty w/ Childcare or Family Care: No Spiritual care concerns: No Meds Home Medications and Allergies Home Medications Medication Instructions
[2024-04-14] MEDS: PANTOPRAZOLE 40 MG TABLET PO (18:19)
[2024-04-14 18:32] LABS: Toxigenic C. Diff NEGATIVE (NEGATIVE)
[2024-04-14] MEDS: LACTATED RINGERS 1,000 ML 125 ML IV CONT (20:45)
[2024-04-14 21:00] LABS: Anion Gap 10 mmol/L (4-12); Blood Urea Nitrogen 65 mg/dL (7-17); Calcium 7.3 mg/dL (8.4-10.2); Carbon Dioxide 19 mmol/L (22-30); Chloride 97 mmol/L (98-107); Estimated Glomerular Filt Rate 11; Glucose 108 mg/dL (65-110); Potassium 3.2 mmol/L (3.4-5.0); Sodium 126 mmol/L (137-145)
--- NOTE | 2024-04-14 21:12 | ADMGEN ---
This patient, Deandra Winkler, was admitted to IMU Room 202-01 at 2110. Patient/family oriented to hospital policies and general routines including ID bracelet, bed and alarms, visiting hours, pain management, procedures, bathroom and other care routines, personal items, smoking policy, room service/diet, and visiting hours. Information on how to activate the Rapid Response Team has been discussed. Patient/Family are encouraged to report perceived risks to care and to ask questions if they do not understand what they are told or what they should do.
[2024-04-14] MEDS: ASPIRIN 81 MG ENTERIC TABLET PO (22:16)
[2024-04-15] VITALS (15 sets, daily range): BP systolic 83–100; BP diastolic 45–59; PULSE 51–99; RESP 12–20; TEMP 36.1–36.8; O2SAT 92–100; BMI 25.4
[2024-04-15] MEDS: ONDANSETRON INJ 4 MG/2 ML VIAL IV PUSH (00:04)
[2024-04-15] MEDS: LACTATED RINGERS 1,000 ML 125 ML IV CONT ×2 (03:35→11:54)
[2024-04-15 04:18] LABS: Total Protein Urine Random 19 mg/dL; Urea Random Urine 271 MG/DL
[2024-04-15 04:21] LABS: Creatinine Urine 38.3 mg/dL
[2024-04-15 04:27] LABS: Eosinophil Urine None Seen % (None Seen); Urine Eos QC 2nd Tech Confirmed
[2024-04-15 04:33] LABS: Sodium Urine Random 31 meq/L
[2024-04-15 04:41] LABS: Creatinine Urine 39.3 mg/dL; Total Protein Urine Random 19 mg/dL; Ur Ttl Prot Creatinine Ratio 0.48 mg/mg (0-0.20)
[2024-04-15 05:00] LABS: Basophils Percent Auto 0.3 % (0.2-1.2); Eosinophils Absolute Auto 0.2 K/mm3 (0-0.3); Immature Granulocyte Absolute 0.02 K/mm3 (0.00-0.031); Immature Granulocyte Percent A 0.7 % (0-0.5); Immature Platelet Fraction Pct 3.9 % (0.9-11.2); Lymphocytes Absolute Auto 0.58 K/mm3 (0.9-3.2); Lymphocytes Percent Auto 19.4 % (18.3-44.2); Mean Corpuscular HGB Conc 34.6 g/dl (32-36); Mean Corpuscular Volume 92.4 fl (80-100); Mean Platelet Volume 11.7 fl (7.4-10.4); Monocytes Absolute Auto 0.2 K/mm3 (0.1-0.6); Monocytes Percent Auto 5.4 % (2.6-8.5); Neutrophils Absolute Auto 2.1 K/mm3 (1.3-6.7); Neutrophils Percent Auto 69.2 % (45.5-73.1); Red Blood Count 1.97 M/mm3 (4.2-5.4); Red Cell Distribution Width 13.3 % (11.5-14.5)
[2024-04-15 05:05] LABS: Alanine Aminotransferase 10 U/L (6-35); Albumin Level 2.8 g/dL (3.5-5.1); Alkaline Phosphatase 65 U/L (38-126); Anion Gap 10 mmol/L (4-12); Aspartate Amino Transferase 11 U/L (14-36); Bilirubin,Total 0.2 mg/dL (0.2-1.3); Blood Urea Nitrogen 61 mg/dL (7-17); Calcium 7.9 mg/dL (8.4-10.2); Carbon Dioxide 20 mmol/L (22-30); Chloride 99 mmol/L (98-107); Creatine Kinase 31 U/L (30-135); Estimated Glomerular Filt Rate 11; Glucose 95 mg/dL (65-110); Magnesium 1.5 mg/dL (1.6-2.3); Phosphorus 2.7 mg/dL (2.5-4.5); Potassium 3.6 mmol/L (3.4-5.0); Sodium 129 mmol/L (137-145)
[2024-04-15 05:11] LABS: Hematocrit 18.2 % (37.0-47.0); Hemoglobin 6.3 g/dL (12.0-15.0); Platelet Count Result 64 k/mm3 (150-375)
[2024-04-15 05:32] LABS: Hypochromasia 1+; Platelet Estimate Decreased (Adequate); Poikilocytosis 1+; Schistocytes Rare
[2024-04-15 08:19] LABS: Iron 39 ug/dL (37-170)
[2024-04-15 08:28] LABS: Percent Iron Saturation 23 % (20-50)
--- NOTE | 2024-04-15 09:15 | PM.CNNEP ---
Assessment and Plan Assessment and plan (1) Chronic kidney disease (CKD), stage V: Code(s): N18.5 - Chronic kidney disease, stage 5 Status: Chronic Assessment and Plan: known advanced chronic kidney disease baseline creatinine seems run around 4.2 - 5.5mg/dl in the last year presumably secondary to mulitple myeloma/myeloma kidmey creatinine a bit better than baseline s/p IVFs follows with Dr Satnam Marte for mangement/monitoring of her chronic kidney disease follow electrolytes, volume status and urine output (2) Hypokalemia: Code(s): E87.6 - Hypokalemia Status: Acute Assessment and Plan: suspect due to GI losses from nausea/vomting/diarrhea this apparently has been an issue before in the past better s/p IV and oral repletion follow magnesium as well follow trend of K+ (3) Hyponatremia: Code(s): E87.1 - Hypo-osmolality and hyponatremia Status: Acute Assessment and Plan: improvement noted with IVF resusciation suspect hypovolemic hyponatremia TSH and cortisol okay on 03/29/24 labs - sodium was 131mmol/L on 03/01/24 labs - sodium 135mmol/L (4) Adynamic ileus: Code(s): K56.0 - Paralytic ileus Status: Acute Assessment and Plan: presumed etiology of nausea + vomiting as noted by admission CT scan of abdomen/pelvis on IVFs and initially NPO except for ice chips advancing diet today (to clear liquids) and follow symptoms follow symptoms (5) Diarrhea: Qualifiers: Diarrhea type: unspecified type Qualified Code(s): R19.7 - Diarrhea, unspecified Code(s): R19.7 - Diarrhea, unspecified Status: Acute Assessment and Plan: presumably related to previous chemotherapy no obstruction by CT scan C. difficile toxin assay negative follow-up on stool cultures follow symptoms/bowel movements (6) Anemia: Code(s): D64.9 - Anemia, unspecified Status: Chronic Assessment and Plan: drop in H/H noted by AM labs PRBC transfusion per protocol likely due to a combination of advanced CKD, multiple myeloma, and IVFs follow trend of H/H Greater than 20 minutes was spent in detail discussion with the patient with regard to her chronic kidney disease and the events that have occurred since her last hospitalization here at [facility] in 2021 along with review of her extensive medical records both here in this area as well as from [place]. I will continue to follow the patient with you while he remains hospitalized and make further recommendations as deemed necessary. Thank you for allowing me to participate in the care of this patient. History of Present Illness Reason for Consult Consult date: 04/15/24 Reason for consult: chronic renal failure, hyponatremia and hypokalemia Chief Complaint Chief complaint: hypokalemia/CKD History of Present Illness Narrative: The patient is a 69-year-old female with a past medical history as outlined below who presented to [facility] Emergency Room due to complaints of nausea, vomiting, diarrhea, and generalized weakness. The patient reports that approximately 3 weeks ago she tested positive for COVID and since that time, she has not been feeling very well. Her symptoms, as mentioned above, include nausea and vomiting in conjunction with decreased/poor oral intake in general. The nausea and vomiting started about 2-3 weeks ago around the same time as her diagnosis of COVID. She also has issues with on and off diarrhea secondary to a medication that she is taking for her known diagnosis of multiple myeloma, specifically lenalidomide. She reports about 5 stools in the last 24 hours despite the use of Imodium. However no reported issues with melena or hematochezia. Given the issues with her diarrhea, her oncologist apparently told her the hold this medication to assess if this would resolve her diarrhea symptoms. However, given the
--- NOTE | 2024-04-15 09:15 | P.CONNP_ITS ---
Assessment and Plan Assessment and plan (1) Chronic kidney disease (CKD), stage V: Code(s): N18.5 - Chronic kidney disease, stage 5 Status: Chronic Assessment and Plan: * known advanced chronic kidney disease * baseline creatinine seems run around 4.2 - 5.5mg/dl in the last year * presumably secondary to mulitple myeloma/myeloma kidmey * creatinine a bit better than baseline s/p IVFs * follows with Dr Satnam Marte for mangement/monitoring of her chronic kidney disease * follow electrolytes, volume status and urine output (2) Hypokalemia: Code(s): E87.6 - Hypokalemia Status: Acute Assessment and Plan: * suspect due to GI losses from nausea/vomting/diarrhea * this apparently has been an issue before in the past * better s/p IV and oral repletion * follow magnesium as well * follow trend of K+ (3) Hyponatremia: Code(s): E87.1 - Hypo-osmolality and hyponatremia Status: Acute Assessment and Plan: * improvement noted with IVF resusciation * suspect hypovolemic hyponatremia * TSH and cortisol okay * on 03/29/24 labs - sodium was 131mmol/L * on 03/01/24 labs - sodium 135mmol/L (4) Adynamic ileus: Code(s): K56.0 - Paralytic ileus Status: Acute Assessment and Plan: * presumed etiology of nausea + vomiting * as noted by admission CT scan of abdomen/pelvis * on IVFs and initially NPO except for ice chips * advancing diet today (to clear liquids) and follow symptoms * follow symptoms (5) Diarrhea: Qualifiers: Diarrhea type: unspecified type Qualified Code(s): R19.7 - Diarrhea, unspecified Code(s): R19.7 - Diarrhea, unspecified Status: Acute Assessment and Plan: * presumably related to previous chemotherapy * no obstruction by CT scan * C. difficile toxin assay negative * follow-up on stool cultures * follow symptoms/bowel movements (6) Anemia: Code(s): D64.9 - Anemia, unspecified Status: Chronic Assessment and Plan: * drop in H/H noted by AM labs * PRBC transfusion per protocol * likely due to a combination of advanced CKD, multiple myeloma, and IVFs * follow trend of H/H Greater than 20 minutes was spent in detail discussion with the patient with regard to her chronic kidney disease and the events that have occurred since her last hospitalization here at [facility] in 2021 along with review of her extensive medical records both here in this area as well as from [place]. I will continue to follow the patient with you while he remains hospitalized and make further recommendations as deemed necessary. Thank you for allowing me to participate in the care of this patient. History of Present Illness Reason for Consult Consult date: 04/15/24 Reason for consult: chronic renal failure, hyponatremia and hypokalemia Chief Complaint Chief complaint: hypokalemia/CKD History of Present Illness Narrative: The patient is a 69-year-old female with a past medical history as outlined below who presented to [facility] Emergency Room due to complaints of nausea, vomiting, diarrhea, and generalized weakness. The patient reports that approximately 3 weeks ago she tested positive for COVID and since that time, she has not been feeling very well. Her symptoms, as mentioned above, include nausea and vomiting in conjunction with decreased/poor oral intake in general. The nausea and vomiting started about 2-3 weeks ago around the same time as her diagnosis of COVID. She also has issues with on and off diarrhea sec
[2024-04-15 10:23] LABS: Folic Acid 4.4 ng/mL (2.76->20); Vitamin B12 > 1000.0 pg/mL (239-931)
[2024-04-15] MEDS: SODIUM CHLORIDE 0.9% IV 250 ML 30 ML IV CONT (10:44)
[2024-04-15] MEDS: TUBING, BLOOD PLUM PUMP TUBING 1 EACH XX (10:44)
[2024-04-15 10:49] LABS: Ferritin > 1000.00 ng/mL (11.1-264)
--- NOTE | 2024-04-15 12:42 | PM.IMPN ---
Progress Note: A&P Assessment and Plan (1) Adynamic ileus: Code(s): K56.0 - Paralytic ileus Status: Acute Assessment and Plan: - CT abdomen/pelvis: 1. Distended transverse colon, likely adynamic ileus. 2. Small sliding hiatal hernia. 3. Widespread lytic lesions of bone, stable from 06/27/2022, consistent with multiple myeloma. - vomiting reoslved, Bowel sounds normoactive, awaiting KUB - hold Imodium - monitor I&Os advance diet once KUB is out (2) Diarrhea: Qualifiers: Diarrhea type: unspecified type Qualified Code(s): R19.7 - Diarrhea, unspecified Code(s): R19.7 - Diarrhea, unspecified Status: Acute Assessment and Plan: - no obstruction on CT, does have adynamic ileus - c. diff negative - stool culture pending - gastroenteritis vs medication SE vs infectious diarrhea. Given diarrhea is longstanding, suspect it is medication side effect. - continue IVF (3) CKD (chronic kidney disease): Qualifiers: Chronic kidney disease stage: unspecified stage Qualified Code(s): N18.9 - Chronic kidney disease, unspecified Code(s): N18.9 - Chronic kidney disease, unspecified Status: Chronic Assessment and Plan: - mild bump in creatinine in setting of CKD/hypovolemia - nephrology consulted - on 125 mL/hr - monitor I&Os (4) Hypokalemia: Code(s): E87.6 - Hypokalemia Status: Acute Assessment and Plan: - K 2.1/2.4 -> 3.2 -->3.6 - initial repletion with 40 IVPB x2 and 50 PO x2, remains low at 3.2. Will give additional 40 p.o. - telemetry monitoring (5) Hyponatremia: Code(s): E87.1 - Hypo-osmolality and hyponatremia Status: Acute Assessment and Plan: - Na 129 - NS bolus 2L - nephrology consulted - trend (6) Pancytopenia: Code(s): D61.818 - Other pancytopenia Status: Acute Assessment and Plan: likely from Chemotherapy, patient on Lenalidomide which she noted was discontinued 3 days prior Hb 6.3, iron sat 25, WBC 3.0 and plts 64 transfuse 1 unit pRBC monitor Plan Diet: NPO with ice chips GI Prophylaxis: not currently indicated DVT Prophylaxis: SCDs due to thrombocytopenia Lines: peripheral Code Status: DNR Subjective Date/time seen: 04/15/24 12:42 Interval history: Comfortable at bedside, Bowel sounds presented on auscultation Awaiting KUB Review of Systems Review of Systems: All systems reviewed & are unremarkable except as noted in HPI and below Exam Narrative: General: alert and comfortable Eyes: EOMI, PERRLA ENNT External ears normal, Neck is supple, no masses, Respiratory systems: Clear to auscultation Cardiovascular S1, S2, normal rhythm, no murmur, rub, or gallop; no thrill or palpable murmurs on palpation. Gastrointestinal: soft, non-tender, and non-distended abdomen with no masses; BS present Skin: no rash, lesions, ulcerations, subcutaneous nodules or induration Musculoskeletal: no abnormality and no tenderness, normal ROM Neurologic: Alert and oriented x3, non focal Mental Status Exam: normal affect Objective Data Vital Signs Vital Signs: Vital Signs - 24 hr 04/14/24 13:30 04/14/24 14:30 04/14/24 15:30 Temperature Pulse Rate 50 L 52 L 53 L Respiratory Rate 16 16 16 Blood Pressure 93/64 L 86/66 L 93/68 L Pulse Oximetry 98 98 100 Oxygen Delivery 04/14/24 16:30 04/14/24 17:30 04/14/24 18:30 Temperature Pulse Rate 56 L 77 56 L Respiratory Rate 16 20 16 Blood Pressure 99/66 L 89/62 L 94/60 L Pulse Oximetry 94 95 95 Oxygen Delivery 04/14/24 21:19 04/14/24 23:01 04/14/24 22:00 Temperature 98.4 F 98.6 F Pulse Rate 60 59 L Respiratory Rate 18 14 Blood Pressure 97/54 L 94/52 L Pulse Oximetry 93 96 Oxygen Delivery Room Air 04/14/24 21:30 04/14/24 22:00 04/15/24 00:00 Temperature Pulse Rate 59 L 59 L 64 Respiratory Rate Blood Pressure Pulse Oximetry Oxygen
--- NOTE | 2024-04-15 18:44 | PC.NURSE ---
This patient, Deandra Winkler, was transferred to [facility] on 04/15/24 at 1835. Personal belongings sent with patient. Report given to Claudy. Appropriate documentation sent with patient.
[2024-04-16] MEDS: LACTATED RINGERS 1,000 ML 60 ML IV CONT (01:02)
[2024-04-16 04:00] VITALS: BP 96/56; PULSE 60; RESP 18; TEMP 36.4; O2SAT 100
[2024-04-16 05:01] LABS: Basophils Percent Auto 1.2 % (0.2-1.2); Eosinophils Absolute Auto 0.2 K/mm3 (0-0.3); Eosinophils Percent Auto 7.4 % (0-4.4); Hematocrit 22.6 % (37.0-47.0); Hemoglobin 7.5 g/dL (12.0-15.0); Immature Granulocyte Absolute 0.02 K/mm3 (0.00-0.031); Immature Granulocyte Percent A 0.8 % (0-0.5); Immature Platelet Fraction Pct 3.1 % (0.9-11.2); Lymphocytes Absolute Auto 0.61 K/mm3 (0.9-3.2); Lymphocytes Percent Auto 23.6 % (18.3-44.2); Mean Corpuscular HGB Conc 33.2 g/dl (32-36); Mean Corpuscular Hemoglobin 31.4 pg (26-34); Mean Corpuscular Volume 94.6 fl (80-100); Mean Platelet Volume 11.6 fl (7.4-10.4); Monocytes Absolute Auto 0.2 K/mm3 (0.1-0.6); Monocytes Percent Auto 9.3 % (2.6-8.5); Neutrophils Absolute Auto 1.5 K/mm3 (1.3-6.7); Neutrophils Percent Auto 57.7 % (45.5-73.1); Platelet Count Result 55 k/mm3 (150-375); Red Blood Count 2.39 M/mm3 (4.2-5.4); Red Cell Distribution Width 13.7 % (11.5-14.5); White Blood Count 2.6 K/mm3 (4.5-10.0)
[2024-04-16 05:17] LABS: Alanine Aminotransferase 9 U/L (6-35); Albumin Level 2.5 g/dL (3.5-5.1); Alkaline Phosphatase 55 U/L (38-126); Anion Gap 8 mmol/L (4-12); Aspartate Amino Transferase 11 U/L (14-36); Bilirubin,Total 0.3 mg/dL (0.2-1.3); Blood Urea Nitrogen 46 mg/dL (7-17); Calcium 7.6 mg/dL (8.4-10.2); Carbon Dioxide 20 mmol/L (22-30); Chloride 103 mmol/L (98-107); Estimated CRCL calculation 12 ml/min; Estimated Glomerular Filt Rate 13; Glucose 91 mg/dL (65-110); Magnesium 1.4 mg/dL (1.6-2.3); Phosphorus 2.6 mg/dL (2.5-4.5); Potassium 3.3 mmol/L (3.4-5.0); Sodium 131 mmol/L (137-145)
[2024-04-16 05:26] LABS: Anisocytosis 1+; Platelet Estimate Decreased (Adequate)
[2024-04-16 05:27] LABS: Poikilocytosis 1+; Schistocytes None Seen
[2024-04-16] MEDS: MAGNESIUM SULF 1 GM/D5W 100 ML 1 GM/100 ML BAG IVPB (10:31)
[2024-04-16 10:51] VITALS: PULSE 61; RESP 18; TEMP 36.3; O2SAT 98
--- NOTE | 2024-04-16 10:52 | P.PNNP_ITS ---
Progress Note: A&P Assessment and Plan (1) Chronic kidney disease (CKD), stage V: Code(s): N18.5 - Chronic kidney disease, stage 5 Status: Chronic Assessment and Plan: * known advanced chronic kidney disease * baseline creatinine seems run around 4.2 - 5.5mg/dl in the last year * presumably secondary to mulitple myeloma/myeloma kidmey * creatinine a bit better than baseline s/p IVFs * follows with Dr Satnam Marte for mangement/monitoring of her chronic kidney disease * follow electrolytes, volume status and urine output (2) Hypokalemia: Code(s): E87.6 - Hypokalemia Status: Acute Assessment and Plan: * suspect due to GI losses from nausea/vomting/diarrhea * this apparently has been an issue before in the past * better s/p IV and oral repletion * follow magnesium as well * follow trend of K+ (3) Hyponatremia: Code(s): E87.1 - Hypo-osmolality and hyponatremia Status: Acute Assessment and Plan: * improvement noted with IVF resusciation * suspect hypovolemic hyponatremia * TSH and cortisol okay * on 03/29/24 labs - sodium was 131mmol/L * on 03/01/24 labs - sodium 135mmol/L (4) Adynamic ileus: Code(s): K56.0 - Paralytic ileus Status: Acute Assessment and Plan: * presumed etiology of nausea + vomiting * as noted by admission CT scan of abdomen/pelvis * repeat imaging negative * tolerating oral intake * follow symptoms (5) Diarrhea: Qualifiers: Diarrhea type: unspecified type Qualified Code(s): R19.7 - Diarrhea, unspecified Code(s): R19.7 - Diarrhea, unspecified Status: Acute Assessment and Plan: * presumably related to previous chemotherapy * no obstruction by CT scan * C. difficile toxin assay negative * follow-up on stool cultures * follow symptoms/bowel movements (6) Anemia: Code(s): D64.9 - Anemia, unspecified Status: Chronic Assessment and Plan: * drop in H/H noted by AM labs on 04/15 * PRBC transfusion per protocol * likely due to a combination of advanced CKD, multiple myeloma, and IVFs * due for outpatient dosing of Procrit next week * follow trend of H/H Will continue to follow. Subjective Date/time seen: 04/16/24 10:52 Interval history: Follow-up for chronic kidney disease and hypokalemia. She appears to be doing quite well at this time; tolerating diet without any further nausea/vomiting or diarrhea; potassium and magnesium levels have improved as well; tolerated PRBC transfusion yesterday morning; no apparent distress voiced when seen; no other issues/events overnight or earlier this morning. Exam Narrative: General: WD/WN female in NAD Heart: normal S1 and S2; no rub Lungs: clear to auscultation Abdomen: soft, nontender, nondistended, positive bowel sounds Extremities: no cyanosis or clubbing; no edema Skin: warm and dry Objective Data Vital Signs Vital Signs: Vital Signs Temp Pulse Resp BP Pulse Ox O2 Del Method 04/16/24 10:51 97.3 F L 61 18 96/64 L 98 04/16/24 08:45 Room Air 04/16/24 04:00 97.5 F L 60 18 96/56 L 100 04/15/24 23:25 98.2 F 56 L 18 91/49 L 100 04/15/24 20:00 Room Air 04/15/24 20:00 98 F 78 18 95/58 L 97 04/15/24 18:45 97.9 F 99 18 93/59 L 92 04/15/24 16:00 98.2 F 57
--- NOTE | 2024-04-16 10:52 | PM.PNNEP ---
Progress Note: A&P Assessment and Plan (1) Chronic kidney disease (CKD), stage V: Code(s): N18.5 - Chronic kidney disease, stage 5 Status: Chronic Assessment and Plan: known advanced chronic kidney disease baseline creatinine seems run around 4.2 - 5.5mg/dl in the last year presumably secondary to mulitple myeloma/myeloma kidmey creatinine a bit better than baseline s/p IVFs follows with Dr Satnam Marte for mangement/monitoring of her chronic kidney disease follow electrolytes, volume status and urine output (2) Hypokalemia: Code(s): E87.6 - Hypokalemia Status: Acute Assessment and Plan: suspect due to GI losses from nausea/vomting/diarrhea this apparently has been an issue before in the past better s/p IV and oral repletion follow magnesium as well follow trend of K+ (3) Hyponatremia: Code(s): E87.1 - Hypo-osmolality and hyponatremia Status: Acute Assessment and Plan: improvement noted with IVF resusciation suspect hypovolemic hyponatremia TSH and cortisol okay on 03/29/24 labs - sodium was 131mmol/L on 03/01/24 labs - sodium 135mmol/L (4) Adynamic ileus: Code(s): K56.0 - Paralytic ileus Status: Acute Assessment and Plan: presumed etiology of nausea + vomiting as noted by admission CT scan of abdomen/pelvis repeat imaging negative tolerating oral intake follow symptoms (5) Diarrhea: Qualifiers: Diarrhea type: unspecified type Qualified Code(s): R19.7 - Diarrhea, unspecified Code(s): R19.7 - Diarrhea, unspecified Status: Acute Assessment and Plan: presumably related to previous chemotherapy no obstruction by CT scan C. difficile toxin assay negative follow-up on stool cultures follow symptoms/bowel movements (6) Anemia: Code(s): D64.9 - Anemia, unspecified Status: Chronic Assessment and Plan: drop in H/H noted by AM labs on 04/15 PRBC transfusion per protocol likely due to a combination of advanced CKD, multiple myeloma, and IVFs due for outpatient dosing of Procrit next week follow trend of H/H Will continue to follow. Subjective Date/time seen: 04/16/24 10:52 Interval history: Follow-up for chronic kidney disease and hypokalemia. She appears to be doing quite well at this time; tolerating diet without any further nausea/vomiting or diarrhea; potassium and magnesium levels have improved as well; tolerated PRBC transfusion yesterday morning; no apparent distress voiced when seen; no other issues/events overnight or earlier this morning. Exam Narrative: General: WD/WN female in NAD Heart: normal S1 and S2; no rub Lungs: clear to auscultation Abdomen: soft, nontender, nondistended, positive bowel sounds Extremities: no cyanosis or clubbing; no edema Skin: warm and dry Objective Data Vital Signs Vital Signs: Vital Signs Temp Pulse Resp BP Pulse Ox O2 Del Method 04/16/24 10:51 97.3 F L 61 18 96/64 L 98 04/16/24 08:45 Room Air 04/16/24 04:00 97.5 F L 60 18 96/56 L 100 04/15/24 23:25 98.2 F 56 L 18 91/49 L 100 04/15/24 20:00 Room Air 04/15/24 20:00 98 F 78 18 95/58 L 97 04/15/24 18:45 97.9 F 99 18 93/59 L 92 04/15/24 16:00 98.2 F 57 L 20 92/52 L 99 04/15/24 13:17 98 F 52 L 16 96/45 L 100 Intake/Output Intake/Output: Intake & Output 04/13/24 04/14/24 04/15/24 04/16/24 23:59 23:59 23:59 23:59 Intake Total 2300 2974.6 1229.6 Output Total 600 Balance 2300 2374.6 1229.6 Meds/Results Medications: Active Medications Generic Name Dose Route Start Last Admin Trade Name Freq PRN Reason Stop Dose Admin Acetaminophen 650 mg 04/14/24 17:46 Acetaminophen 325 Mg Tablet PO Q4H PRN Mild Pain (1-3) or Fever Aspirin 81 mg 04/14/24 21:55 04/14/24 22:16 Aspirin 81 Mg Enteric Tablet PO 81 mg HS [facility] Administrati
[2024-04-16 10:56] VITALS: BP 96/64
--- NOTE | 2024-04-16 12:11 | PM.DS ---
DS: Admitting Diagnosis Discharge Date 04/16/24 Admitting Diagnosis ileus DS: Discharge Diagnosis Discharge Diagnosis (1) Anemia: Code(s): D64.9 - Anemia, unspecified Status: Chronic (2) Nausea & vomiting: Code(s): R11.2 - Nausea with vomiting, unspecified Status: Acute (3) Diarrhea: Qualifiers: Diarrhea type: unspecified type Qualified Code(s): R19.7 - Diarrhea, unspecified Code(s): R19.7 - Diarrhea, unspecified Status: Acute DS: Summary Hospital Course Hospital Course: The patient presents here from home for further evaluation of nausea, vomiting, diarrhea, and weakness. She reports that she tested positive for COVID approximately 3 weeks ago and has been feeling unwell since then. The nausea and vomiting it is accompanied by decreased p.o. intake, last able to tolerate yogurt this morning. She reports onset of nausea and vomiting for 2-3 weeks and diarrhea has been chronic since initiation of the medication for her multiple myeloma - lenalidomide. She estimates she has had 5 stools in the last 24 hours despite 4 doses of Imodium. Denies melena or hematochezia. Patient is on medications for her multiple myeloma which was diagnosed in 2021. She is on XX for the MM for the past 3 weeks, patient contacted her oncologist we suspended the medication approximately 3-4 days ago due to the concern that it may be contributing to her diarrhea. Of note, patient had acute renal failure in 2021 when she was initially diagnosed with MM. 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 While post-transplant and while she was on chemo she was started on dialysis and had treatments for about 6 months (stopped in Sep). Patient follows with a consumer insights specialist in [place]. Initial VS at presentation: 97.2? F, HR 92, RR 18, 8453, and 98% on RA. ED workup showed: WBC 4.0, hemoglobin 7.9, platelet count 80, potassium 2.1, sodium 124, creatinine 4.9 and GFR 9 (per patient was 4.4 and GFR 11 approx 1 month ago), and normal TSH. UA unremarkable. CXR showed no acute cardiopulmonary disease. CT of the abdomen/pelvis showed a distended transverse colon likely adynamic ileus, small sliding hiatal hernia, and widespread lytic lesions of the bone that are stable since 2021 and consistent with multiple myeloma. Patient was started on IV fluids, Na improved to 131, nausea and vomiting resolved, bowel sounds returned and patient tolerating oral intake. She also has pancytopenia from chemotherapy, currently on Lenalidomide, and she has close monitoring outpatient and has a follow up with her nephrology tomorrow and she will get her blood drawn for labs. hb 6.3 and she received 1 unit pRBC and hb improved to 7.5. Plts 55 from 64 and WBC 2.6 from 3.0. patient will continue outpatient monitoring as noted above she was discharged on PO Salt tablet x 7 days, hyponatremia was due to dehydration from vomiting, and patient having reestablised oral intake will continue to improved, and will continue close follow up with nephrology. Assessment and Plan (1) Adynamic ileus: Code(s): K56.0 - Paralytic ileus Status: Acute Assessment and Plan: - CT abdomen/pelvis: 1. Distended transverse colon, likely adynamic ileus. 2. Small sliding hiatal hernia. 3. Widespread lytic lesions of bone, stable from 06/27/2022, consistent with multiple myeloma. - vomiting resolved, Bowel sounds normoactive, awaiting KUB no obstructoin tolerating diet (2) Diarrhea: Qualifiers: Diarrhea type: unspecified type Qualified Code(s): R19.7 - Diarrhea, unspecified Code(s): R19.7 - Diarrhea, unspecified Status: Acute Assessment and Plan: - no obstruction on CT, does have adynamic ileus - c. diff negative - stool culture pending patient has chronic diarrhea and she is back to her baseline continue follow up with PCP (3) C
== END 2024-04-16 13:16 | disposition home or self-care (01) ==
LOC: ANHED 14:00 → ANHIMU 19:52 → ANH2MED 04-15 18:30
PROVIDERS: Internal Medicine Nephrology; Student in an Organized Health Care Education/Training Program; Admitting Provider Internal Medicine; Emergency Provider Student in an Organized Health Care Education/Training Program; Visit Provider Internal Medicine
DX: K56.0 Paralytic ileus (principal); R19.7 Diarrhea, unspecified; D61.818 Other pancytopenia; D72.810 Lymphocytopenia; E86.0 Dehydration; C90.00 Multiple myeloma not having achieved remission; E87.1 Hypo-osmolality and hyponatremia; E83.42 Hypomagnesemia; D72.819 Decreased white blood cell count, unspecified; K44.9 Diaphragmatic hernia without obstruction or gangrene; R53.1 Weakness; N18.5 Chronic kidney disease, stage 5; D64.9 Anemia, unspecified; F41.9 Anxiety disorder, unspecified; I44.0 Atrioventricular block, first degree; Z86.16 Personal history of COVID-19; Z66 Do not resuscitate; Z79.61 Long term (current) use of immunomodulator
CPT/HCPCS: 36415; 36430; 71046; 74018; 74176; 80048; 80053; 81001; 81050; 82533; 82550; 82570; 82607; 82728; 82746; 83540; 83550; 83735; 84100; 84156; 84300; 84443; 84540; 85025; 85055; 85999; 86850; 86900; 86901; 86923; 87045; 87427; 87449; 87493; 93005; 96361; 96365; 96366; 96368; 96375; 96376; 99285; A9270; G0378; J2405; J3475; J3480; J7030; J7050; J7120; P9016

== ENCOUNTER 2024-04-19 11:35 | Emergency (ER) | payer MEDICARE, SELFPAY ==
[2024-04-19 11:47] VITALS: BP 102/61; PULSE 74; RESP 16; TEMP 36.6; O2SAT 99
[2024-04-19 11:48] VITALS: BP 102/61; PULSE 74; RESP 16; TEMP 36.6; O2SAT 99
--- NOTE | 2024-04-19 11:53 | ED.URI ---
HPI - URI/Sore Throat General Chief Complaint: Upper Respiratory Infection Stated Complaint: sinus issue Time Seen by Provider: 04/19/24 11:53 Source: patient, RN notes reviewed and old records reviewed Mode of arrival: ambulatory Limitations: no limitations History of Present Illness HPI Narrative: Patient presents with complaints of 3 weeks of nasal congestion, sinus congestion, discomfort. Was recently hospitalized with COVID-19 infection, has been out of hospital for about 3 days. She reports that most symptoms are better, but the sinus discomfort and congestion has been lingering. She reports purulent mucus. She denies any fever, chills, sweats. Patient is undergoing cancer treatment. ?I just need a little more help getting better? Related Data Home Medications Medication Instructions Recorded Confirmed Adult Low Dose Aspirin 81 mg BYMOUTH HS 04/14/24 04/19/24 calcitriol 0.25 mcg capsule 0.25 mcg PO DAILY 04/14/24 04/19/24 cyanocobalamin (vitamin B-12) 500 500 mcg PO DAILY 04/14/24 04/19/24 mcg tablet lenalidomide 5 mg capsule 5 mg PO DAILY 04/14/24 04/19/24 sertraline 50 mg tablet 50 mg PO DAILY 04/14/24 04/19/24 sodium bicarbonate 650 mg tablet 650 mg PO BID 04/14/24 04/19/24 Allergies Allergy/AdvReac Type Severity Reaction Status Date / Time No Known Allergies Allergy Verified 04/19/24 11:44 Review of Systems Review of Systems: All systems reviewed & are unremarkable except as noted in HPI and below Constitutional: Constitutional: Reports no additional constitutional complaints ENT: Reports system reviewed and no additional complaints, except as documented, Reports as per HPI, Reports nasal congestion, Reports sinus pain and Reports sinus pressure Cardiovascular: Cardiovascular: Reports no additional cardiovascular complaints Respiratory: Respiratory: Reports no additional respiratory complaints Gastrointestinal: Gastrointestinal: Reports no additional gastrointestinal complaints PMFSH Past Medical History Medical History (Updated 04/19/24 @ 12:16 by Audrey Pruitt APRN) Anemia Anxiety CKD (chronic kidney disease) First degree AV block History of end stage renal disease Previously required dialysis; no longer Multiple myeloma Sliding hiatal hernia Surgical History Surgical History H/O foot surgery right foot H/O: hysterectomy History of removal of pigmented skin lesion Family History Family History Mother Diabetes mellitus History of kidney cancer Hypertension Father Anemia Lung cancer Sibling Bladder cancer Sibling Thyroid cancer Son Diabetes mellitus Social History Social History Social History: The patient lives with her who recently started undergoing chemotherapy for cancer. They have 4 children. She is retired from [employer]. She is a lifelong nonsmoker. She does occasionally drink alcohol. She does not use any marijuana or illicit drugs. Power workers compensation attorney is her . Code status full code Smoking status: Never smoker Second hand tobacco smoke exposure: No Alcohol intake: never Drinks per week: 7 Substance use: never Substance use type: does not use Do You Feel Safe in your Home?: Yes Lack of Transportation: No Lack of Food: Never True Current Housing: I Have Housing Concerned About Future Housing: No Difficulty Paying Gas/Electric Bills: No Difficulty Paying for Meds: No Currently Unemployed: No Education: High School Diploma/GED Difficulty w/ Childcare or Family Care: No Spiritual care concerns: No Comments At the time of my signature, I reviewed and agree with the nursing past medical, surgical, social, and family history. There is no relevant family history pertinent to the patient complaint. Exam Const: General: cooperative,
== END 2024-04-19 12:20 | disposition home or self-care (01) ==
PROVIDERS: Emergency Provider Nurse Practitioner Family
DX: J01.00 Acute maxillary sinusitis, unspecified (principal); C90.00 Multiple myeloma not having achieved remission; N18.6 End stage renal disease; F41.9 Anxiety disorder, unspecified
CPT/HCPCS: 99213; G0463

== ENCOUNTER 2024-05-06 11:45 | Emergency (ER) | payer MEDICARE, SELFPAY ==
--- NOTE | 2024-05-06 11:46 | ED.URI ---
HPI - URI/Sore Throat General Chief Complaint: Upper Respiratory Infection Stated Complaint: sore throat in a.m., nasal discharge Time Seen by Provider: 05/06/24 11:46 Source: patient Mode of arrival: ambulatory Limitations: no limitations History of Present Illness HPI Narrative: Julius is a 61-year-old female patient presenting to the clinic today with complaints of postnasal drip and sinus drainage. Over the past month she was hospitalized for COVID. Was seen 3 days after being discharged from the hospital and diagnosed with a sinus infection on April 19. She was given prescription for Augmentin at that time. States that her symptoms have improved however she is still having sinus pressure and drainage. Denies any fevers, chills, body aches, chest pain, or shortness of breath MD elicited complaint: sore throat and nasal congestion Related Data Home Medications Medication Instructions Recorded Confirmed Adult Low Dose Aspirin 81 mg BYMOUTH HS 04/14/24 05/06/24 calcitriol 0.25 mcg capsule 0.25 mcg PO DAILY 04/14/24 05/06/24 cyanocobalamin (vitamin B-12) 500 500 mcg PO DAILY 04/14/24 05/06/24 mcg tablet lenalidomide 5 mg capsule 5 mg PO DAILY 04/14/24 05/06/24 sertraline 50 mg tablet 50 mg PO DAILY 04/14/24 05/06/24 sodium bicarbonate 650 mg tablet 650 mg PO BID 04/14/24 05/06/24 Allergies Allergy/AdvReac Type Severity Reaction Status Date / Time No Known Allergies Allergy Verified 05/06/24 11:46 Review of Systems Review of Systems: Pertinent positives per HPI. Patient denies any fever, chills, rash, headache, visual changes, dizziness, shortness of breath, chest pain, palpitations, nausea, vomiting, diarrhea, constipation, abdominal pain, or any urinary issues. [facility] Past Medical History Medical History Anemia Anxiety CKD (chronic kidney disease) First degree AV block History of end stage renal disease Previously required dialysis; no longer Multiple myeloma Sliding hiatal hernia Surgical History Surgical History H/O foot surgery right foot H/O: hysterectomy History of removal of pigmented skin lesion Family History Family History Mother Diabetes mellitus History of kidney cancer Hypertension Father Anemia Lung cancer Sibling Bladder cancer Sibling Thyroid cancer Son Diabetes mellitus Social History Social History Social History: The patient lives with her who recently started undergoing chemotherapy for cancer. They have 4 children. She is retired from Accounting. She is a lifelong nonsmoker. She does occasionally drink alcohol. She does not use any marijuana or illicit drugs. Power compliance attorney is her . Code status full code Smoking status: Never smoker Second hand tobacco smoke exposure: No Alcohol intake: never Drinks per week: 7 Substance use: never Substance use type: does not use Do You Feel Safe in your Home?: Yes Lack of Transportation: No Lack of Food: Never True Current Housing: I Have Housing Concerned About Future Housing: No Difficulty Paying Gas/Electric Bills: No Difficulty Paying for Meds: No Currently Unemployed: No Education: High School Diploma/GED Difficulty w/ Childcare or Family Care: No Spiritual care concerns: No Comments At the time of my signature, I reviewed and agree with the nursing past medical, surgical, social, and family history. There is no relevant family history pertinent to the patient complaint. Exam Narrative: General: Well-developed, well nourished, in no apparent distress Head: Normocephalic, atraumatic Eyes: Pupils equally round and reactive to light bilaterally, EOM intact, sclera and conjunctive clear, no discharge, lids normal Ea
[2024-05-06 11:55] VITALS: BP 104/70; PULSE 74; RESP 18; TEMP 36.6; O2SAT 100
[2024-05-08 14:27] LABS: EDSTREPNEGPOS1 Negative (Negative)
== END 2024-05-06 12:15 | disposition home or self-care (01) ==
PROVIDERS: Emergency Provider Nurse Practitioner Family
DX: J01.00 Acute maxillary sinusitis, unspecified (principal); Z79.82 Long term (current) use of aspirin; N18.9 Chronic kidney disease, unspecified
CPT/HCPCS: 87081; 87880; 99213; G0463